=== PATIENT | female | born 1965 | race Caucasian/White ===

== ENCOUNTER → 2016-11-01 | Outpatient (CLI) | payer OTHER ==
--- NOTE | 2016-11-01 11:48 | DI ---
AP PELVIS and RIGHT HIP, 11/01/2016 10:50 AM: Clinical History: Right hip pain. Previous Exam: None at this facility. There is no soft tissue abnormality. The bony structures of the pelvis are normal. 2 views of the rig ht hip are normal. Readin. Normal right hip exam. 2. The AP pelvis view is unremarkable.
--- NOTE | 2016-11-01 11:53 | DI ---
RIGHT KNEE, 11/01/2016 10:37 AM: Clinical History: Acute right knee pain. Previous Exam: 09/19/2013; 10/18/2014. 3 views are submitted. The patient is status post total right knee replacement and the patient has un dergone revision of the entire prosthesis. The prosthetic device articulates normally. However, lucen cy surrounding the metallic shank of the femoral component and this is new since the previous study o f 10/18/2014. The tibial component including the metallic shank appears intact. The prosthetic device a rticulates normally. Readin. Status post revision of the total knee prosthesis. The prosthetic device articulates normally. 2. Since the exam of 10/18/2014, a lucency is developed around the perimeter of the shank of the femor al component and this is suspicious for loosening of the prosthesis. If further evaluation is require d, then consider a three-phase bone scan of the knees.
== END ==
LOC: ORTHO 11:29
PROVIDERS: ATTEND Orthopaedic Surgery
DX: M25.561 Pain in right knee (principal); M25.551 Pain in right hip; Z96.651 Presence of right artificial knee joint
CPT/HCPCS: 73502; 73562

== ENCOUNTER 2016-11-28 21:28 | Emergency (ER) | payer OTHER ==
[2016-11-28] MEDS ORDERED: Sodium Chloride 0.9% 1,000 ML PRIMARY IV ONE (21:34)
[2016-11-28] MEDS ORDERED: ASPIRIN 81 MG (BABY) CHEWABLE TABLET PO ONE (21:34)
[2016-11-28] MEDS ORDERED: NORMAL SALINE 10 ML SYRINGE FLUSH IVP PRN (21:34)
[2016-11-28] MEDS ORDERED: LORazepam 2 MG/1 ML VIAL IVP ONE ×2 (21:35→22:54)
--- NOTE | 2016-11-28 21:39 | EKG ---
[address] [place] [address] Measurements Intervals [place] Rate: 85 P: 78 NV: 153 QRS: 67 QRSD: 87 T: 68 QT: 371 QTc: 413 Interpretive Statements SINUS RHYTHM WITH SINUS ARRHYTHMIA POSSIBLE RIGHT VENTRICULAR CONDUCTION DELAY [RSR (QR) IN V1/V2] NONSPECIFIC T-WAVE ABNORMALITY with baseline interference in limb leads INTERPRETATION BASED ON A DEFAULT AGE OF 40 YEARS Compared to ECG 08/25/2016 16:40:00 T-wave abnormality now present Electronically Signed On 11-29-16 08:13:17 [facility] by Feliciano Vences MD [email or web address]
[2016-11-28 21:41] LABS: BASOPHILS # (AUTO) 0.03 10*3/UL; BASOPHILS % (AUTO) 0.5 % (0-1); EOSINOPHILS % (AUTO) 2.5 % (0-8); HEMATOCRIT 31.6 % (37.0-47.0); HEMOGLOBIN 10.1 g/dL (12.0-16.0); IMM GRAN % (AUTO) 0.2 % (0-5); IMM GRAN# (AUTO) 0.01 10*3/UL; LYMPHOCYTES % (AUTO) 44.2 % (10-50); MEAN CORPUSCULAR HEMOGLOBIN 23.8 PG (27-31); MEAN PLATELET VOLUME 9.8 FL (7.4-12.2); MONOCYTES # (AUTO) 0.68 10*3/UL (0.3-0.8); MONOCYTES % (AUTO) 11.1 % (5-15); NEUTROPHILS # (AUTO) 2.54 10*3/UL; NEUTROPHILS % (AUTO) 41.5 % (50-80); RDW COEFFICIENT OF VARIATION 16.5 % (11.5-14.5); RED BLOOD COUNT 4.25 10^6/uL (4.20-5.40); WHITE BLOOD COUNT 6.11 10^3/uL (4.8-10.8)
[2016-11-28 21:42] LABS: PLATELET MORPHOLOGY COMMENT NORMAL MORPHOLOGY (NORM)
[2016-11-28 21:51] LABS: AMYLASE 98 U/L (30-110); ASPARTATE AMINO TRANSFERASE 32 IU/L (8-39); BILIRUBIN,TOTAL 0.8 mg/dL (0.3-1.2); BLOOD UREA NITROGEN 14 mg/dL (7-22); BUN/CREATININE RATIO 23.33 (6-20); CALCIUM 9.3 mg/dL (8.7-10.7); CHLORIDE 108 meq/L (98-112); CREATININE 0.6 mg/dL (0.50-1.20); EST GLOMERULAR FILTRATION > 60 (>60 ml/min/1.73m(2)); GLUCOSE 89 mg/dL (78-110); POTASSIUM 3.3 meq/L (3.8-5.2); SODIUM 146 meq/L (135-145); TOTAL PROTEIN 7.9 g/dL (6.1-8.0)
[2016-11-28 22:03] LABS: CREATINE KINASE MB 0.53 NG/DL (0.00-5.00); TROPONIN I < 0.012 ng/mL (< 0.040)
[2016-11-28 22:33] VITALS: RESP 20; TEMP 97.7
--- NOTE | 2016-11-28 23:09 | DI ---
HISTORY: Chest pain and elevated d-dimer, request to rule out PE. TECHNIQUE: IV contrast administration of volume of iodine-based contrast medium (isovue 300 64ml). C TA chest to opacify pulmonary arteries. MPR. Additional MIP images obtained. 561 images reviewed. FINDINGS: Tubes/Lines: None. Lungs: Lungs are without focal consolidation, pleural effusion or pneumothorax. Bibasilar atelectasis noted. Incidental azygous lobe. Pulmonary emboli: No evidence of acute or chronic pulmonary emboli. The distal sub segmental branches are incompletely evaluated. Heart: No cardiomegaly or pericardial effusion. Vessels:Thoracic aorta and coronary arteries without gross abnormality. Mediastinum: No mediastinal adenopathy by size criteria. Abdomen: Limited evaluation of the upper abdominal viscera without acute abnormality identified. Gal lbladder surgically absent. Surgical changes of the stomach/proximal small bowel noted. Sternum, ribs and thoracic spine: Healing, left lateral 6th, 7th, 8th and 9th rib fractures. Multilev el thoracic spine degenerative changes. IMPRESSION: 1. No CT evidence of acute or chronic pulmonary embolism. 2. Healing, left lateral 6th, 7th, 8th and 9th rib fractures, no pneumothorax. NOTIFICATION: The above findings were phoned to Kassy Carmichael in the ER Department on 11/29/2016 a t 1:12am EST.
[2016-11-28] MEDS ORDERED: ClonazePAM Tab 1 MG TABLET PO SCH (23:30)
--- NOTE | 2016-11-28 23:49 | PDOC ---
Chest Pain HPI - General Chief Complaint: Chest Pain Stated Complaint: CHEST PAIN Date Seen by Provider: 11/28/16 Time Seen by Provider: 21:30 Source: Patient Exam Limitations: POSITIVE: No limitations Treatment Prior to Arrival: REPORTS: None - History of Present Illness Initial Comments: The patient is a 51-year-old female who presents to the emergency department with complaints of chest pain. She states that she has had significant and severe stress and anxiety related to her 27-year-old daughter who by her account is on meth and has been giving her problems for many years. She states that the stresses become severe. She is worried that her daughter is going to from her drug abuse and she worries about her grandchildren constantly. She is afraid to go to sleep because she is afraid of eating called that her daughter has been killed or arrested. She states that she has not slept for the past 2 nights because of this. She reports that she has been having chest pains off and on associated with her anxiety. She states that she has had constant chest pain since of last week. She denies any increase shortness of breath, palpitations or any other associated symptoms. - Patient Home Medications Home Medications: Home Medications Divalproex Sodium [Depakote] 500 mg PO BID tab 10/06/15 Estradiol 1 tab PO DAILY #30 tab 08/11/16 clonazePAM [KlonoPIN] 1 mg PO Q8H PRN #15 tab 11/28/16 - Patient Allergies Allergies/Adverse Reactions: Allergies Allergy/AdvReac Type Severity Reaction Status Date / Time nickel Allergy Severe DELAYED Verified 11/28/16 21:41 HEALING TKA codeine [Codeine] Allergy Intermediate ITCHING Verified 11/28/16 21:41 Penicillins Allergy Intermediate ANAPHLAXIS Verified 11/28/16 21:41 Sulfa (Sulfonamide Allergy Intermediate RASH Verified 11/28/16 21:41 Antibiotics) tramadol AdvReac Intermediate NAUSEA Verified 11/28/16 21:41 hydrocodone AdvReac VOMITING Verified 11/28/16 21:41 SEAFOOD Allergy Anaphylaxis Uncoded 11/28/16 21:41 Past Medical History - heen HEENT History: Dentures/Partials, Other (please comment) Additional HEENT History: HAS TONGUE piercing. DENTURES UPPER AND LOWER Cardiovascular History: Denies History Respiratory History: Denies History Additional Respiratory History: BRUISED RIBS FROM RECENT ER VISIT APPROX 2-3 WEEKS AGO Gastrointestinal History: GERD, Irritable Bowel Syndrome, Peptic Ulcer Disease, Gallbladder Disease Additional Gastrointestinal History: HX OF GASTRIC BYPASS Genitourinary History: Denies History Additional Genitourinary History: HAS NOT HAD UTI IN A LONG TIME Endocrine History: Other (please comment) Additional Endocrine History: STATES SHE WAS DIABETIC PRIOR TO GASTRIC BYPASS Musculoskeletal History: Arthritis, Back Pain, Joint Pain, Other (please comment ) Prosthesis or Implant: Yes (RIGHT KNEE/LEFT 3RD FINGER) Additional Musculoskeletal History: R TKA SEP 2013 (3 surgeries total), and has had manipulation of right knee under anesthesia since. CHRONIC BACK PAIN Neurological History: Seizures, Migraines, Motion Sickness Additional Neurological History: INSOMNIA Blood Disorders: Anemia Additional Blood Disorders History: LABS ABNORMAL. SEE NOTE IN ANESTHESIA CHART REVIEW FOR FURTHER NOTE. ANEMIA Psychiatric History: Depression, Anxiety Disorders, Substance Abuse Additional Psychiatric History: past history of substance abuse History of Sexually Transmitted Diseases: No Female Reproductive History: Hysterectomy Obstetrical History: Denies History Cancer History: Denies History In Past Year Been Physically Harmed or Verbally Threatened: No History of MDRO: No History of Other Communicable Diseases: No Tobacco Use: Former Smoker Alcohol Use: None Substance Use Type: Other (please comment) Previous Surgical History: Yes Type / Date of Surgery: RIGHT TKA X3 AND MANIPULATION/APPY/ DOMINGUEZ/ GASTRIC BYPASS 2007--weight dropped from 250 lbs to 125 after surgery/ HYST/ BLADDER REPAIR X3/ RIGHT INGUINAL HERNIORRHAPHY/ RIGHT FOOT BUNIONECTOMY/SALPINGO- OOPHERECTOMY/ RIGHT RCR/CTR Anesthesia Reactions: No Malignant Hyperthermia: No Significant Family History: Heart disease, Cancer, Diabetes, Hypertension Additional Family History: FATHER HAD PROSTATE CA/CVA Past Medical History Reviewed: Reviewed - No Changes ROS - Limitations ROS Limitations: No Limitations Constitution: DENIES: Chills, Fever Cardiovascular: REPORTS: Chest Pain. DENIES: Heart Racing, Heart Palpitations, Edema Respiratory: DENIES: Cough Non Productive, Cough Productive, Shortness Of Breath Neurological: REPORTS: Headache. DENIES: Numbness, Weakness Gastrointestinal: DENIES: Abdominal Pain Musculoskeletal: DENIES: Calf Pain, Lower Extremity Swelling Genitourinary: REPORTS: Denies Symptoms Eyes: REPORTS: Denies Symptoms ENT: REPORTS: Denies Symptoms Skin: DENIES: Rash Chest Pain PE - General Appearance General Appearance: REPORTS: Alert, Anxious - HEENT HEENT: POSITIVE: Head Inspection Nml, Eyes Inspection Nml, Ears Inspection Nml, Nose Inspection Nml, Pharynx Inspect. Nml - Neck Neck: REPORTS: Normal Inspection. DENIES: Lymphadenopathy - Respiratory Respiratory: REPORTS: No Respiratory Distress, Breath Sounds Normal - Cardiovascular Cardiovascular: REPORTS: Regular Rate and Rhythm, Heart Sounds Normal Peripheral Pulses: Dorsalis-pedis (R): 2+, Dorsalis-pedis (L): 2+ - Abdomen Abdomen: Soft: (All Quadrants), Denies Tenderness: (All Quadrants), No Distention: (All Quadrants) - Skin Skin: REPORTS: Intact, No Rash - Extremities Extremity: Normal ROM: (All Extremities), Normal Inspection: (All Extremities) - Neurological / Psychological Neurological: POSITIVE: Oriented X3, Motor Normal, Sensation Normal Chest Pain Progress - Results Reviewed by me Xrays/CTs/US Reviewed by me: Yes Discussed with Radiologist: Yes Radiology Findings: CT scan of the chest for PE protocol reveals no evidence of PE, no other acute findings per radiologist. Chest x-ray done prior to that was also unremarkable. Lab Results Reviewed: Yes Lab Results:: Laboratory Results 11/28/16 Range/Units 21:36 WBC 6.11 (4.8-10.8) 10^3/uL RBC 4.25 (4.20-5.40) 10^6/uL Hgb 10.1 L (12.0-16.0) g/dL Hct 31.6 L (37.0-47.0) % MCV 74.4 L (81-99) FL MCH 23.8 L (27-31) PG MCHC 32.0 L (33-37) g/dL RDW Std Deviation 43.7 (39-50) fL RDW Coeff of Sam 16.5 H (11.5-14.5) % Plt Count 342 (140-350) 10*3/uL MPV 9.8 (7.4-12.2) FL Immature Gran % (Auto) 0.2 (0-5) % Neut % (Auto) 41.5 L (50-80) % Lymph % (Auto) 44.2 (10-50) % [place] % (Auto) 11.1 (5-15) % Eos % (Auto) 2.5 (0-8) % Baso % (Auto) 0.5 (0-1) % Immature Gran # (Auto) 0.01 10*3/UL Neut # (Auto) 2.54 10*3/UL Lymph # (Auto) 2.70 10*3/uL [place] # (Auto) 0.68 (0.3-0.8) 10*3/UL Eos # (Auto) 0.15 10*3/UL Baso # (Auto) 0.03 10*3/UL WBC Morphology Comment Normal morphology (NORM) Plt Morphology Comment Normal morphology (NORM) RBC Morph Comment Normal morphology (NORM) D-Dimer 1.38 H (0.00-0.59) mg/L Sodium 146 H (135-145) meq/L Potassium 3.3 L (3.8-5.2) meq/L Chloride 108 (98-112) meq/L Carbon Dioxide 22 L (23-33) meq/L Anion Gap 16 (5-20) BUN 14 (7-22) mg/dL Creatinine 0.6 (0.50-1.20) mg/dL Estimated GFR > 60 (>60 ml/min/1.73m(2)) BUN/Creatinine Ratio 23.33 H (6-20) Glucose 89 (78-110) mg/dL Calculated Osmolality 301.0 H (267-292) mOsm/kg Calcium 9.3 (8.7-10.7) mg/dL Magnesium 2.0 (1.6-2.4) mg/dL Total Bilirubin 0.8 (0.3-1.2) mg/dL AST 32 (8-39) IU/L ALT 30 (9-52) IU/L Alkaline Phosphatase 121 (38-126) IU/L CK-MB (CK-2) 0.53 (0.00-5.00) NG/DL Troponin I < 0.012 (< 0.040) ng/mL Total Protein 7.9 (6.1-8.0) g/dL Albumin 4.4 (3.5-4.8) g/dL Globulin 3.5 (2.50-4.10) g/dL Albumin/Globulin Ratio 1.20 L (1.3-2.0) mg/g Amylase 98 (30-110) U/L Lipase 296 (23-300) IU/L TSH 2.29 (0.2700-4.2000) uIU/mL EKG Interpreted/Reviewed By Me:: Yes EKG Interpretation:: POSITIVE: Normal Sinus Rhythm, Normal Rate, Normal Intervals, Normal [place], Normal QRS, Normal ST/T - Patient's Progress MDM / ED Course: The patient was tearful and quite anxious on arrival. Her initial EKG showed a normal sinus rhythm without acute changes. It was thought that her pain was most likely secondary to anxiety and stress. She did receive 1 dose of Ativan however remained quite anxious and tearful and received a second dose. She was feeling better at that time. Her initial blood work revealed a normal troponin. Given the duration of her pain I think this makes any acute coronary issue much less likely. Her d-dimer was elevated and a subsequent CT PE protocol was negative for PE. Her pain was most likely attributed to anxiety and stress. She was encouraged to follow-up with a counselor. She states that she does not trust any of the counselors here however her primary care provider was going to refer her to [facility]. She was prescribed Klonopin 1 mg every 8 hours as needed for severe anxiety or stress. She is advised return to the emergency room if any worsening or change in symptoms. - Consult Counseled: POSITIVE: Patient, Family, RE: Lab Results, RE: Radiology Results, RE : DX, RE: Need for F/U Patient Care Time - Estimated PCT Patient Care Time (In Minutes): 45 Vital Signs - Recent Vital Signs Vital Signs: Vital Signs (Last 8 hours) Temp Pulse Pulse Resp BP Pulse Ox 11/28/16 21:30 97.7 F 88 20 99/73 98 11/28/16 21:29 87 - VS Reviewed Vital Signs Reviewed: Yes Discharge Clinical Impression: Chest pain, Anxiety Condition: Stable Prescriptions / Orders: clonazePAM [KlonoPIN] 1 mg PO Q8H PRN #15 tab PRN Reason: Anxiety Patient Instructions Given at Discharge: Chest Pain (ED), Anxiety (ED) Additional Instructions: The EKG and blood test did not reveal any evidence of heart attack. The CAT scan did not show any evidence of blood clot. Your other blood work was all essentially unremarkable except for mild anemia. Your chest pains and other symptoms are most likely related to the increased stress you're experiencing. You have been prescribed Klonopin 1 mg every 8 hours as needed for anxiety/ panic. You will need to follow-up with your primary care provider as soon as possible to discuss further treatment recommendations. I also agree that counseling would be a good idea for you as well. Return to the emergency room if any worsening or change in symptoms. Follow Up With: VENKAT MOTT [Primary Care Provider] -
--- NOTE | 2016-11-29 09:13 | DI ---
AP CHEST X-RAY, 11/28/2016 9:34 PM : Clinical History: Chest pain Previous Exam: September 16, 2016 There is no acute soft tissue or bony abnormality. Heart size is normal. Lungs are clear. Mediastinal structures are normal. There are no pulmonary nodules. Reading: Normal chest x-ray.
== END 2016-11-28 23:46 | disposition home or self-care (01) ==
LOC: ER 21:28
DX: R07.9 Chest pain, unspecified (principal); F41.9 Anxiety disorder, unspecified
CPT/HCPCS: 71010; 71275; 80053; 82150; 82553; 83690; 83735; 84443; 84484; 85025; 85379; 93005; 93010; 96374; 96376; 99284; J2060; J7030

== ENCOUNTER 2016-12-13 02:36 | Observation (INO) | payer OTHER ==
[2016-12-13] MEDS ORDERED: NITROGLYCERIN 0.4 MG SL TAB (BOTTLE OF 3) SL ONE (02:54)
[2016-12-13] MEDS ORDERED: LORazepam 2 MG/1 ML VIAL IVP ONE (02:54)
[2016-12-13] MEDS ORDERED: ASPIRIN 81 MG (BABY) CHEWABLE TABLET PO ONE (02:54)
[2016-12-13] MEDS ORDERED: ONDANSETRON 4 MG/2 ML VIAL IVP ONE (02:54)
[2016-12-13] MEDS ORDERED: MORPHINE SULFATE 4 MG/1 ML IVP ONE (02:54)
[2016-12-13] MEDS ORDERED: Sodium Chloride 0.9% 1,000 ML PRIMARY IV SCH (03:00)
--- NOTE | 2016-12-13 03:01 | EKG ---
[address] [place] [address] Measurements Intervals [place] Rate: 78 P: 82 [place]: 149 QRS: 67 QRSD: 88 T: 21 QT: 389 QTc: 423 Interpretive Statements SINUS RHYTHM NONSPECIFIC T-WAVE ABNORMALITY Compared to ECG 11/28/2016 21:33:28 Sinus arrhythmia no longer present T-wave abnormality still present Electronically Signed On 12-13-16 10:23:45 [facility] by Jacob Sanchez [email or web address]
--- NOTE | 2016-12-13 03:02 | PDOC ---
Chest Pain HPI - General Chief Complaint: Chest Pain Stated Complaint: CHEST PAIN Date Seen by Provider: 12/13/16 Time Seen by Provider: 02:57 Source: Patient Exam Limitations: POSITIVE: No limitations Treatment Prior to Arrival: REPORTS: None Nurse's Notes Reviewed & Considered: Yes - History of Present Illness Initial Comments: Patient comes in today with chest pain. Patient with sharp left-sided chest pain that radiates into her shoulder and back with associated shortness of breath. She's had recent fever 102, nausea, vomiting, decreased urine output without hematuria or dysuria, swelling of her hands and feet, and increased anxiety. She is tearful, tremulous, alert and oriented to person place and time. She has been unable sleep for 6 days since she took Seroquel. She was told to discontinue Seroquel at that time. The swelling of her hands and feet began at that time. Chest pain began yesterday. Body Location Affected: REPORTS: Chest Timing: REPORTS: Constant, Getting Worse Duration: <1 week Severity: Severe Context: REPORTS: Emotional Upset Quality: REPORTS: "Pain", Sharpness Radiation: REPORTS: Jaw (L), Shoulder (L), Arm (L), Back Associated Symptoms: REPORTS: Nausea, Vomiting, Diaphoresis, Shortness of Breath , Hurts to Breathe Modifying Factors: improves with: None Reported Recently seen/treated/hospitalized: No Any Prior Injuries Related to Current Complaint?: No - Patient Home Medications Home Medications: Home Medications Divalproex Sodium [Depakote] 500 mg PO BID tab 10/06/15 Estradiol 1 tab PO DAILY #30 tab 08/11/16 clonazePAM [KlonoPIN] 1 mg PO Q8H PRN #15 tab 11/28/16 - Patient Allergies Allergies/Adverse Reactions: Allergies Allergy/AdvReac Type Severity Reaction Status Date / Time nickel Allergy Severe DELAYED Verified 12/13/16 03:43 HEALING TKA codeine [Codeine] Allergy Intermediate ITCHING Verified 12/13/16 03:43 Penicillins Allergy Intermediate ANAPHLAXIS Verified 12/13/16 03:43 Sulfa (Sulfonamide Allergy Intermediate RASH Verified 12/13/16 03:43 Antibiotics) tramadol AdvReac Intermediate NAUSEA Verified 12/13/16 03:43 hydrocodone AdvReac VOMITING Verified 12/13/16 03:43 SEAFOOD Allergy Anaphylaxis Uncoded 12/13/16 03:43 Past Medical History - heen HEENT History: Dentures/Partials, Other (please comment) Additional HEENT History: HAS TONGUE piercing. DENTURES UPPER AND LOWER Cardiovascular History: Denies History Respiratory History: Denies History Additional Respiratory History: BRUISED RIBS FROM RECENT ER VISIT APPROX 2-3 WEEKS AGO Gastrointestinal History: GERD, Irritable Bowel Syndrome, Peptic Ulcer Disease, Gallbladder Disease Additional Gastrointestinal History: HX OF GASTRIC BYPASS Genitourinary History: Denies History Additional Genitourinary History: HAS NOT HAD UTI IN A LONG TIME Endocrine History: Other (please comment) Additional Endocrine History: STATES SHE WAS DIABETIC PRIOR TO GASTRIC BYPASS Musculoskeletal History: Arthritis, Back Pain, Joint Pain, Other (please comment ) Prosthesis or Implant: Yes (RIGHT KNEE/LEFT 3RD FINGER) Additional Musculoskeletal History: R TKA SEP 2013 (3 surgeries total), and has had manipulation of right knee under anesthesia since. CHRONIC BACK PAIN Neurological History: Seizures, Migraines, Motion Sickness Additional Neurological History: INSOMNIA Blood Disorders: Anemia Additional Blood Disorders History: LABS ABNORMAL. SEE NOTE IN ANESTHESIA CHART REVIEW FOR FURTHER NOTE. ANEMIA Psychiatric History: Depression, Anxiety Disorders, Substance Abuse Additional Psychiatric History: past history of substance abuse History of Sexually Transmitted Diseases: No Female Reproductive History: Denies History Obstetrical History: Denies History Cancer History: Denies History In Past Year Been Physically Harmed or Verbally Threatened: No History of MDRO: No History of Other Communicable Diseases: No Tobacco Use: Never Smoker Alcohol Use: None Substance Use Type: Other (please comment) Previous Surgical History: Yes Type / Date of Surgery: RIGHT TKA X3 AND MANIPULATION/APPY/ DOMINGUEZ/ GASTRIC BYPASS 2007--weight dropped from 250 lbs to 125 after surgery/ HYST/ BLADDER REPAIR X3/ RIGHT INGUINAL HERNIORRHAPHY/ RIGHT FOOT BUNIONECTOMY/SALPINGO- OOPHERECTOMY/ RIGHT RCR/CTR Anesthesia Reactions: No Malignant Hyperthermia: No Significant Family History: Heart disease, Cancer, Diabetes, Hypertension Additional Family History: FATHER HAD PROSTATE CA/CVA ROS - Limitations ROS Limitations: No Limitations Constitution: REPORTS: Chills, Fever Cardiovascular: REPORTS: Chest Pain Respiratory: REPORTS: Hurts To Breathe, Shortness Of Breath Neurological: REPORTS: Denies Neuro Symptoms Gastrointestinal: REPORTS: Abdominal Pain, Nausea, Vomitting Endocrine: REPORTS: Denies Symptoms Musculoskeletal: REPORTS: Back Pain, Lower Extremity Swelling Genitourinary: REPORTS: Other (Decreased urine output with increased frequency.) Eyes: REPORTS: Denies Symptoms ENT: REPORTS: Denies Symptoms Skin: REPORTS: Denies Skin Symptoms Lympathic: REPORTS: Denies Lympathic Symptoms Immunologic: POSITIVE: Denies Symptoms Psychiatric: POSITIVE: Anxiety Chest Pain PE - General Appearance General Appearance: REPORTS: Alert, No Evidence of Trauma, Moderate Distress - HEENT HEENT: POSITIVE: Head Inspection Nml, Eyes Inspection Nml, Ears Inspection Nml, Nose Inspection Nml, Oral/Dental Inspect. Nml, Pharynx Inspect. Nml, PERRL, EOMI - Neck Neck: REPORTS: Normal Inspection, Other (No thyromegaly) - Respiratory Respiratory: REPORTS: Breath Sounds Normal, Chest Non-Tender - Cardiovascular Cardiovascular: REPORTS: Regular Rate and Rhythm, Heart Sounds Normal, Equal Pulses, Strong Pulses, No Murmur, No Gallop, No Friction Rub, No JVD Peripheral Pulses: Radial (R): 3+, Radial (L): 3+ - Abdomen Abdomen: Soft: (All Quadrants), Normal Bowel Sounds: (All Quadrants), Denies Tenderness: (All Quadrants) - Skin Skin: REPORTS: Intact, Normal For Race, Warm, Dry, No Rash - Extremities Extremity: Non-Tender: (All Extremities), Normal ROM: (All Extremities), Normal Inspection: (All Extremities), Edema / Swelling: (All Extremities) - Neurological / Psychological Neurological: POSITIVE: Oriented X3, Other (tearful and very anxious) Chest Pain Progress - Results Reviewed by me Xrays/CTs/US Reviewed by me: Yes Discussed with Radiologist: Yes Lab Results Reviewed: Yes Lab Results:: Laboratory Results 12/13/16 12/13/16 Range/Units 02:48 03:12 WBC 9.90 (4.8-10.8) 10^3/uL RBC 3.46 L (4.20-5.40) 10^6/uL Hgb 7.9 L (12.0-16.0) g/dL Hct 25.8 L (37.0-47.0) % MCV 74.6 L (81-99) FL MCH 22.8 L (27-31) PG MCHC 30.6 L (33-37) g/dL RDW Std Deviation 44.6 (39-50) fL RDW Coeff of Sam 17.1 H (11.5-14.5) % Plt Count 356 H (140-350) 10*3/uL MPV 10.2 (7.4-12.2) FL Immature Gran % (Auto) 0.1 (0-5) % Neut % (Auto) 64.5 (50-80) % Lymph % (Auto) 18.2 (10-50) % [place] % (Auto) 16.8 H (5-15) % Eos % (Auto) 0.3 (0-8) % Baso % (Auto) 0.1 (0-1) % Immature Gran # (Auto) 0.01 10*3/UL Neut # (Auto) 6.39 10*3/UL Lymph # (Auto) 1.80 10*3/uL [place] # (Auto) 1.66 H (0.3-0.8) 10*3/UL Eos # (Auto) 0.03 10*3/UL Baso # (Auto) 0.01 10*3/UL WBC Morphology Comment Normal morphology (NORM) Plt Morphology Comment Normal morphology (NORM) RBC Morph Comment See comments (NORM) D-Dimer 1.39 H (0.00-0.59) mg/L Sodium 136 (135-145) meq/L Potassium 3.5 L (3.8-5.2) meq/L Chloride 100 (98-112) meq/L Carbon Dioxide 26 (23-33) meq/L Anion Gap 10 (5-20) BUN 20 (7-22) mg/dL Creatinine 0.6 (0.50-1.20) mg/dL Estimated GFR > 60 (>60 ml/min/1.73m(2)) BUN/Creatinine Ratio 33.33 H (6-20) Glucose 103 (78-110) mg/dL Calculated Osmolality 284.0 (267-292) mOsm/kg Lactic Acid 0.8 (0.70-2.10) MMOL/L Calcium 8.5 L (8.7-10.7) mg/dL Magnesium 1.9 (1.6-2.4) mg/dL Total Bilirubin 0.7 (0.3-1.2) mg/dL AST 54 H (8-39) IU/L ALT 26 (9-52) IU/L Alkaline Phosphatase 130 H (38-126) IU/L Troponin I < 0.012 (< 0.040) ng/mL NT-Pro-B Natriuret Pep 556 H (0-125) PG/ML Total Protein 7.1 (6.1-8.0) g/dL Albumin 3.6 (3.5-4.8) g/dL Globulin 3.5 (2.50-4.10) g/dL Albumin/Globulin Ratio 1.00 L (1.3-2.0) mg/g TSH 0.359 (0.2700-4.2000) uIU/mL Free T4 1.57 (0.93-1.71) ng/dL EKG Interpretation:: POSITIVE: Normal Sinus Rhythm, Abnormal EKG (Nonspecific ST changes) - Patient's Progress Pain Medication Addressed: POSITIVE: Yes Re-Examine Time: 04:07 Re-Examine Time:: 05:43 Status: POSITIVE: Improved MDM / ED Course: Patient was evaluated, IV started, blood drawn and sent to lab for studies, radiographic buddies were obtained, EKG was obtained. Findings: EKG per my interpretation shows sinus rhythm with nonspecific T-wave changes. Chest x-ray shows no acute cardiopulmonary decompensation. Digital rectal exam is negative for blood on guaiac staining. CBC shows anemia with hemoglobin 7.9 and hematocrit of 25.8. D-dimer is elevated. Troponin negative , TSH and T4 normal. CTA of the chest shows no acute PE present. CT of the abdomen and no acute intra-abdominal abnormalities. BNP is elevated over 500. Assessment: #1 is pain with normal enzymes and equivocal EKG. #2 symptomatic anemia. Plan: Admission, probable transfusion. ER course: She received a liter of normal saline, a milligram of Ativan, sublingual nitroglycerin and Zofran. These medications dropped her pressure into the 90s, and she was bolused with normal saline. She continued to be short of breath, complaining of pain radiating into her left shoulder. The pain was improved. She also continues to have fatigue. Quality Measure Initiative: CP/AMI: POSITIVE: EKG, ASA Quality Measure Initiative: CAP: POSITIVE: CXR or CT - Consult Consult (If Yes, Name of Consulting MD & Time Called): Yes (Dr. Santos [id number]) Consulting MD will see pt:: [place]IVE[place] [facility] [place] Counseled: POSITIVE: Patient, Family, RE: Lab Results, RE: Radiology Results, RE : DX Patient Care Time - Estimated PCT Patient Care Time (In Minutes): 45 Vital Signs - Recent Vital Signs Vital Signs: Vital Signs (Last 8 hours) Temp Pulse Pulse Resp BP Pulse Ox 12/13/16 05:37 98.2 F 18 99 12/13/16 04:50 90 12/13/16 02:54 90 12/13/16 02:49 98.2 F 87 22 111/76 99 - VS Reviewed Vital Signs Reviewed: Yes Discharge Clinical Impression: Chest pain, Symptomatic anemia Discharge Disposition: Admit to Inpatient Condition: Stable Patient Instructions Given at Discharge: Chest Pain (ED), Anemia (ED) Date Decision to Admit to Inpatient: 12/13/16 Time Decision to Admit to Inpatient: 05:51
[2016-12-13 03:04] LABS: BASOPHILS # (AUTO) 0.01 10*3/UL; BASOPHILS % (AUTO) 0.1 % (0-1); EOSINOPHILS % (AUTO) 0.3 % (0-8); HEMATOCRIT 25.8 % (37.0-47.0); HEMOGLOBIN 7.9 g/dL (12.0-16.0); IMM GRAN % (AUTO) 0.1 % (0-5); IMM GRAN# (AUTO) 0.01 10*3/UL; LYMPHOCYTES % (AUTO) 18.2 % (10-50); MEAN CORPUSCULAR HEMOGLOBIN 22.8 PG (27-31); MEAN CORPUSCULAR HGB CONC 30.6 g/dL (33-37); MEAN PLATELET VOLUME 10.2 FL (7.4-12.2); MONOCYTES # (AUTO) 1.66 10*3/UL (0.3-0.8); MONOCYTES % (AUTO) 16.8 % (5-15); NEUTROPHILS # (AUTO) 6.39 10*3/UL; NEUTROPHILS % (AUTO) 64.5 % (50-80); RDW COEFFICIENT OF VARIATION 17.1 % (11.5-14.5); RED BLOOD COUNT 3.46 10^6/uL (4.20-5.40)
[2016-12-13 03:10] LABS: ASPARTATE AMINO TRANSFERASE 54 IU/L (8-39); BILIRUBIN,TOTAL 0.7 mg/dL (0.3-1.2); BLOOD UREA NITROGEN 20 mg/dL (7-22); BUN/CREATININE RATIO 33.33 (6-20); CALCIUM 8.5 mg/dL (8.7-10.7); CHLORIDE 100 meq/L (98-112); CREATININE 0.6 mg/dL (0.50-1.20); EST GLOMERULAR FILTRATION > 60 (>60 ml/min/1.73m(2)); GLUCOSE 103 mg/dL (78-110); MAGNESIUM 1.9 mg/dL (1.6-2.4); POTASSIUM 3.5 meq/L (3.8-5.2); SODIUM 136 meq/L (135-145); TOTAL PROTEIN 7.1 g/dL (6.1-8.0)
[2016-12-13 03:28] LABS: FREE T4 (FREE THYROXINE) 1.57 ng/dL (0.93-1.71)
[2016-12-13 03:35] LABS: PLATELET MORPHOLOGY COMMENT NORMAL MORPHOLOGY (NORM)
--- NOTE | 2016-12-13 05:28 | DI ---
HISTORY: Shortness of breath with elevated d-dimer. COMPARISON: 07/28/2016. TECHNIQUE: Contiguous axial images of the chest were obtained from the lung apices through the adren al glands. FINDINGS: No pneumothorax, pleural effusion, or area of consolidation. Incidental note is made of an azygos lobe. No evidence of great vessel injury. 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 No main or segmental pulmonary emboli. Heart size is normal with no p ericardial effusion. No mediastinal or hilar lymphadenopathy. Normal CT appearance of the liver, pa ncreas, spleen, kidneys, and adrenal glands. The patient is status post cholecystectomy. Ureters ar e unremarkable. The patient is status post gastric bypass surgery. Hollow viscus organs demonstrate expected course and caliber. There is no intraperitoneal free air or fluid. Vascular structures are intact with scattered atheromatous calcifications. No abdominal lymphadenopathy is present. Subacute left anterolateral sixth through ninth rib fractures are noted. There is multilevel degenerative disc disease. IMPRESSION: 1. Incidental note is made of an azygos lobe. 2. 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 3. No main or segmental pulmonary emboli. 4. Status post cholecystectomy. 5. The patient is status post gastric bypass surgery. 6. Vascular structures are intact with scattered atheromatous calcifications. 7. Subacute left anterolateral sixth through ninth rib fractures are noted. 8. There is multilevel degenerative disc disease. NOTIFICATION: The above findings were phoned to Fernando Ratliff in the ER Department on 12/13/2016 at 07: 32 AM EST.
--- NOTE | 2016-12-13 05:28 | DI ---
HISTORY: GI bleed. COMPARISON: 07/28/2016. TECHNIQUE: Contiguous axial images of the abdomen were obtained and submitted for interpretation. FINDINGS: No pneumothorax, pleural effusion, or area of consolidation. Incidental note is made of a n azygos lobe. No evidence of great vessel injury. 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 No main or segmental pulmonary emboli. Heart size is normal with no pe ricardial effusion. No mediastinal or hilar lymphadenopathy. Normal CT appearance of the liver, pancreas, spleen, kidneys, and adrenal glands. The patient is sta tus post cholecystectomy. Ureters are unremarkable. The patient is status post gastric bypass surge ry. Hollow viscus organs demonstrate expected course and caliber. There is no intraperitoneal free air or fluid. Vascular structures are intact with scattered atheromatous calcifications. No abdominal lymphadenopathy is present. Subacute left anterolateral sixth through ninth rib fractures are noted. There is multilevel degenerative disc disease. IMPRESSION: 1. Incidental note is made of an azygos lobe. 2. 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 3. No main or segmental pulmonary emboli. 4. Status post cholecystectomy. 5. The patient is status post gastric bypass surgery. 6. Vascular structures are intact with scattered atheromatous calcifications. 7. Subacute left anterolateral sixth through ninth rib fractures are noted. 8. There is multilevel degenerative disc disease. NOTIFICATION: The above findings were phoned to Fernando Ratliff in the ER Department on 12/13/2016 at 07: 32 AM EST.
[2016-12-13] MEDS ORDERED: ONDANSETRON 4 MG/2 ML VIAL IVP PRN (06:22)
[2016-12-13 06:28] LABS: PERCENT IRON SATURATION 3.08 % (14-50)
[2016-12-13] MEDS ORDERED: Influenza 16-17 Vaccine(4yrs+) 45 MCG/0.5 ML SYRINGE IM ONE ×2 (06:49→15:15)
--- NOTE | 2016-12-13 07:40 | PDOC ---
History and Physical - History of Present Illness Date and Time of Service: 12/13/2016 7:37 AM Chief Complaint: Chest pain, left arm pain of 2 days' duration, shortness of breath and dizziness History of Present Illness: This is a 51 years old female with medical history significant for history of seizure disorder, history of previous gastric bypass who came into the hospital because of history of pain felt in the left upper part of the chest and in the left arm being going on for 2 days with some shortness of breath, dizziness. She did report vomiting. The pain was on and off and at times constant lasted hours she said. There was a plan for her to go see her primary today but her brought her to the ER. Apparently she was a tearful and tremulous in the ER she said didn't sleep for 6 days. She did report some swelling in her hands and feet. She was given morphine and Ativan and lab tests revealed anemia and it was lower than her previous level and hence the admission. She is sleepy but pain is less she said than before. She denied melena. She reported lower abdominal pain since she had the gastric bypass surgery. Past Medical History Medical History: 1. History of gastric bypass before. 2. History of seizure disorder since 2008. 3. History of gastric ulcer according to her Surgical History: 1. Gastric bypass in 2007. 2. History of cholecystectomy. 3. History of hysterectomy and salpingo-oophorectomy Pertinent Family History: Her father had cardiac disease, mother had the COPD emphysema Tobacco Use: Never Smoker Substance Use Type: None, Other (please comment) Alcohol Use: None Medication / Allergies Home Medications: Home Medications Medication Instructions Recorded Confirmed Type RX: Divalproex Sodium [Depakote] 500 mg PO BID tab 10/06/15 12/13/16 History RX: Estradiol 1 tab PO DAILY #30 tab 08/11/16 12/13/16 Clinic clonazePAM [KlonoPIN] 1 mg PO Q8H PRN #15 tab 11/28/16 12/13/16 Rx Allergies/Adverse Reactions: Allergies Allergy/AdvReac Type Severity Reaction Status Date / Time nickel Allergy Severe DELAYED Verified 12/13/16 06:43 HEALING TKA codeine [Codeine] Allergy Intermediate ITCHING Verified 12/13/16 06:43 Penicillins Allergy Intermediate ANAPHLAXIS Verified 12/13/16 06:43 Sulfa (Sulfonamide Allergy Intermediate RASH Verified 12/13/16 06:43 Antibiotics) tramadol AdvReac Intermediate NAUSEA Verified 12/13/16 06:43 hydrocodone AdvReac VOMITING Verified 12/13/16 06:43 SEAFOOD Allergy Anaphylaxis Uncoded 12/13/16 06:43 Review of Systems - Review of Systems All Systems: Reviewed & No Additional Complaints Except as Stated Exam - Vitals Vital Signs: Vital Signs Temperature 97.9 F Temperature Source Temporal Artery Scan Pulse Rate [Pulse Oximeter] 91 Respiratory Rate 18 Blood Pressure [Left Arm] 99/62 Pulse Ox 98 Oxygen Flow Rate 2 Oxygen Delivery Method Nasal Cannula Height 5 ft 3 in Weight 117 lb 6.4 oz - General General Appearance: POSITIVE: No Acute Distress, Thin - Head Head Exam: POSITIVE: Normal Inspection, Atraumatic - Eye Eye Exam: POSITIVE: Normal Appearance - ENT Additonal ENT Exam Details: edentulous - Neck Neck Exam: POSITIVE: Normal Inspection - Respiratory Respiratory Exam: POSITIVE: Clear to Auscultation - Bilaterally - Cardiovascular Cardiovascular Exam: POSITIVE: RRR - GI/Abdominal GI/Abdominal Exam: POSITIVE: Normal Bowel Sounds, Non Tender, Non Distended, Soft - Rectal Rectal Exam: POSITIVE: Deferred - External Exam: POSITIVE: Deferred - Extremities Extremities Exam: POSITIVE: Normal Inspection - Back Back Exam: POSITIVE: Normal Inspection - Neurological Neurological Exam: POSITIVE: Alert, CN II-XII Intact, Moves All Extremities Equally Additional Neurological Exam Details: Sleepy at times during the interview - Psychiatric Psychiatric Exam: POSITIVE: Normal Affect - Integumentary Integumentary Exam: POSITIVE: Normal Color Results - Labs CBC and BMP: 12/13/16 02:48 12/13/16 02:48 - EKG Data Rate: Normal EKG Shows Normal: Sinus Rhythm - EKG Data When Compared to Previous EKG(s) There Are: Other (Nonspecific EKG changes noted ) - Imaging Status: Report Reviewed by Me (CT of the abdomen and chest showed subacute left anterolateral sixth through ninth rib fractures on the left, patient is status post cholecystectomy, status post gastric bypass surgery.) Assessment and Plan - Patient Problems (1) Anemia Current Visit: No Status: Acute Comment: This looks the iron deficiency anemia, because of the history of the chest pain and shortness of breath will transfuse her. She likely need to be on iron. I saw her outpatient record of an EGD done in August [address] Valenzuela which report several large deep ulcers were present at the gastrojejunal anastomosis. And also one shallow linear ulcer present at the Y anastomosis. Will Speak with Dr. Melton and see what he thinks about a repeat EGD (2) Chest pain Current Visit: Yes Status: Acute Comment: Maybe secondary to the anemia, EKG showed nonspecific changes, will repeat her enzymes. We'll see her response to the transfusion. (3) Seizure disorder Current Visit: No Status: Acute Comment: Continue Depakote
[2016-12-13] MEDS ORDERED: Sodium Chloride 0.9% 500 ML PRIMARY IV ONE (07:56)
--- NOTE | 2016-12-13 09:19 | DI ---
AP CHEST X-RAY, 12/13/2016 2:54 AM : Clinical History: Chest pain. Previous Exam: 11/28/2016. There is no acute soft tissue or bony abnormality. Heart size is normal. Lungs are clear. Mediastinal structures are normal. There are no pulmonary nodules. Reading: Normal chest x-ray. There has been no change.
[2016-12-13] MEDS: NORMAL SALINE 10 ML SYRINGE FLUSH IVP PRN ×2 (09:54→20:46)
[2016-12-13] MEDS: Pantoprazole Inj 40 MG in Normal Saline Flush 10 ML IVP SCH ×2 (09:54→20:45)
[2016-12-13 10:04] LABS: TROPONIN I < 0.012 ng/mL (< 0.040)
[2016-12-13 10:40] LABS: CREATINE KINASE MB 2.84 NG/DL (0.00-5.00)
[2016-12-13] MEDS: Sucralfate Tab 1 GM TAB PO SCH ×3 (12:07→20:45)
[2016-12-13 13:18] LABS: BILIRUBIN,URINE NEGATIVE (NEG); CLARITY,URINE CLEAR (CLEAR); GLUCOSE, URINE (UA) NEGATIVE (NEG); LEUKOCYTE ESTERASE ,URINE TRACE (NEG); NITRATE,URINE NEGATIVE (NEG); OCCULT BLOOD,URINE NEGATIVE (NEG); PROTEIN,URINE TRACE mg/dl (NEG)
[2016-12-13 13:29] LABS: URINE SAMPLE TYPE CLEAN CATCH URINE
[2016-12-13 13:30] LABS: BACTERIA,URINE FEW; SQUAMOUS EPITHELIAL CELL,UR MODERATE
[2016-12-13] MEDS: oxyCODONE-ACETAMINOPHEN 5-325 TAB PO PRN ×2 (14:46→18:18)
[2016-12-13 16:06] LABS: TROPONIN I < 0.012 ng/mL (< 0.040)
[2016-12-13 16:33] LABS: CARDIAC CK 341 IU/L (30-135); CKMB RATIO 0.55 %; CREATINE KINASE MB 1.88 NG/DL (0.00-5.00)
[2016-12-13] MEDS ORDERED: Metoclopramide Inj 10 MG/2 ML VIAL IVP PRN (20:14)
[2016-12-13] MEDS: POTASSIUM CHLORIDE 20 MEQ TAB PO SCH (20:45)
[2016-12-14] MEDS: oxyCODONE-ACETAMINOPHEN 5-325 TAB PO PRN ×2 (00:25→07:13)
[2016-12-14 05:33] LABS: BASOPHILS # (AUTO) 0.01 10*3/UL; BASOPHILS % (AUTO) 0.2 % (0-1); EOSINOPHILS % (AUTO) 2.1 % (0-8); HEMATOCRIT 29.8 % (37.0-47.0); HEMOGLOBIN 9.6 g/dL (12.0-16.0); IMM GRAN % (AUTO) 0 % (0-5); IMM GRAN# (AUTO) 0 10*3/UL; LYMPHOCYTES # (AUTO) 2.35 10*3/uL; LYMPHOCYTES % (AUTO) 50.2 % (10-50); MEAN CORPUSCULAR HEMOGLOBIN 24.9 PG (27-31); MEAN CORPUSCULAR HGB CONC 32.2 g/dL (33-37); MEAN PLATELET VOLUME 9.9 FL (7.4-12.2); MONOCYTES # (AUTO) 0.75 10*3/UL (0.3-0.8); NEUTROPHILS # (AUTO) 1.47 10*3/UL; NEUTROPHILS % (AUTO) 31.5 % (50-80); RDW COEFFICIENT OF VARIATION 17.6 % (11.5-14.5); RED BLOOD COUNT 3.86 10^6/uL (4.20-5.40); WHITE BLOOD COUNT 4.68 10^3/uL (4.8-10.8)
[2016-12-14 05:42] LABS: BLOOD UREA NITROGEN 7 mg/dL (7-22); CALCIUM 7.9 mg/dL (8.7-10.7); CHLORIDE 106 meq/L (98-112); CREATININE 0.5 mg/dL (0.50-1.20); EST GLOMERULAR FILTRATION > 60 (>60 ml/min/1.73m(2)); GLUCOSE 80 mg/dL (78-110); POTASSIUM 3.4 meq/L (3.8-5.2); SODIUM 139 meq/L (135-145)
[2016-12-14 05:51] LABS: PLATELET MORPHOLOGY COMMENT NORMAL MORPHOLOGY (NORM)
[2016-12-14] MEDS: Sucralfate Tab 1 GM TAB PO SCH (07:06)
[2016-12-14 07:57] VITALS: RESP 16; TEMP 97.7
--- NOTE | 2016-12-14 08:48 | PDOC(PROG) ---
Date and Time of Service: 12/14/2016 8:45 AM Interval History: Subjective Patient feels better than yesterday, complained from some headache and some swelling in her hands but the pain at chest resolved. Objective : Data - Labs CBC and BMP: 12/14/16 05:13 12/14/16 05:13 Labs - Last 24 Hours: Laboratory Results 12/13/16 12/13/16 12/13/16 Range/Units 09:00 13:10 15:26 WBC (4.8-10.8) 10^3/uL RBC (4.20-5.40) 10^6/uL Hgb (12.0-16.0) g/dL Hct (37.0-47.0) % MCV (81-99) FL MCH (27-31) PG MCHC (33-37) g/dL RDW Std Deviation (39-50) fL RDW Coeff of Sam (11.5-14.5) % Plt Count (140-350) 10*3/uL MPV (7.4-12.2) FL Immature Gran % (Auto) (0-5) % Neut % (Auto) (50-80) % Lymph % (Auto) (10-50) % [place] % (Auto) (5-15) % Eos % (Auto) (0-8) % Baso % (Auto) (0-1) % Immature Gran # (Auto) 10*3/UL Neut # (Auto) 10*3/UL Lymph # (Auto) 10*3/uL [place] # (Auto) (0.3-0.8) 10*3/UL Eos # (Auto) 10*3/UL Baso # (Auto) 10*3/UL WBC Morphology Comment (NORM) Plt Morphology Comment (NORM) RBC Morph Comment (NORM) Sodium (135-145) meq/L Potassium (3.8-5.2) meq/L Chloride (98-112) meq/L Carbon Dioxide (23-33) meq/L Anion Gap (5-20) BUN (7-22) mg/dL Creatinine (0.50-1.20) mg/dL Estimated GFR (>60 ml/min/1.73m(2)) BUN/Creatinine Ratio (6-20) Glucose (78-110) mg/dL Calculated Osmolality (267-292) mOsm/kg Calcium (8.7-10.7) mg/dL Total Creatine Kinase 429 H 341 H (30-135) IU/L CK-MB (CK-2) 2.84 1.88 (0.00-5.00) NG/DL CK-MB (CK-2) Ratio Not Reportable 0.55 Troponin I < 0.012 < 0.012 (< 0.040) ng/mL Ur Collection Type Clean catch urine Urine Color Yellow Urine Clarity Clear (CLEAR) Urine pH 6.0 (5.0-8.5) Ur Specific [place] 1.015 (1.005-1.030) Urine Protein Trace (NEG) mg/dl Urine Glucose (UA) Negative (NEG) mg/dL Urine Ketones 15 (NEG) Urine Occult Blood Negative (NEG) Urine Nitrate Negative (NEG) Urine Bilirubin Negative (NEG) Urine Urobilinogen 1.0 (0.2) EU/dL Ur Leukocyte Esterase Trace (NEG) Urine RBC 1-3 (NONE) /hpf Urine WBC 7-10 (NONE) Ur Squamous Epith Cells Moderate (NONE) Ur Renal Epithelial Cell None (NONE) Urine Crystals None Urine Bacteria Few (NONE) Urine Casts None (NONE) Urine Mucus None (NONE) Urine Trichomonas None (NONE) Urine Yeast None (NONE) Ur Culture Indicated? Culture set 12/14/16 Range/Units 05:13 WBC 4.68 L (4.8-10.8) 10^3/uL RBC 3.86 L (4.20-5.40) 10^6/uL Hgb 9.6 L (12.0-16.0) g/dL Hct 29.8 L (37.0-47.0) % MCV 77.2 L (81-99) FL MCH 24.9 L (27-31) PG MCHC 32.2 L (33-37) g/dL RDW Std Deviation 47.6 (39-50) fL RDW Coeff of Sam 17.6 H (11.5-14.5) % Plt Count 261 (140-350) 10*3/uL MPV 9.9 (7.4-12.2) FL Immature Gran % (Auto) 0 (0-5) % Neut % (Auto) 31.5 L (50-80) % Lymph % (Auto) 50.2 H (10-50) % [place] % (Auto) 16.0 H (5-15) % Eos % (Auto) 2.1 (0-8) % Baso % (Auto) 0.2 (0-1) % Immature Gran # (Auto) 0 10*3/UL Neut # (Auto) 1.47 10*3/UL Lymph # (Auto) 2.35 10*3/uL [place] # (Auto) 0.75 (0.3-0.8) 10*3/UL Eos # (Auto) 0.10 10*3/UL Baso # (Auto) 0.01 10*3/UL WBC Morphology Comment Normal morphology (NORM) Plt Morphology Comment Normal morphology (NORM) RBC Morph Comment Normal morphology (NORM) Sodium 139 (135-145) meq/L Potassium 3.4 L (3.8-5.2) meq/L Chloride 106 (98-112) meq/L Carbon Dioxide 30 (23-33) meq/L Anion Gap 3 L (5-20) BUN 7 (7-22) mg/dL Creatinine 0.5 (0.50-1.20) mg/dL Estimated GFR > 60 (>60 ml/min/1.73m(2)) BUN/Creatinine Ratio 14.00 (6-20) Glucose 80 (78-110) mg/dL Calculated Osmolality 284.0 (267-292) mOsm/kg Calcium 7.9 L (8.7-10.7) mg/dL Total Creatine Kinase (30-135) IU/L CK-MB (CK-2) (0.00-5.00) NG/DL CK-MB (CK-2) Ratio Troponin I (< 0.040) ng/mL Ur Collection Type Urine Color Urine Clarity (CLEAR) Urine pH (5.0-8.5) Ur Specific [place] (1.005-1.030) Urine Protein (NEG) mg/dl Urine Glucose (UA) (NEG) mg/dL Urine Ketones (NEG) Urine Occult Blood (NEG) Urine Nitrate (NEG) Urine Bilirubin (NEG) Urine Urobilinogen (0.2) EU/dL Ur Leukocyte Esterase (NEG) Urine RBC (NONE) /hpf Urine WBC (NONE) Ur Squamous Epith Cells (NONE) Ur Renal Epithelial Cell (NONE) Urine Crystals Urine Bacteria (NONE) Urine Casts (NONE) Urine Mucus (NONE) Urine Trichomonas (NONE) Urine Yeast (NONE) Ur Culture Indicated? Objective : Exam - General General Appearance: No Acute Distress, Cooperative, Thin - Head Head Exam: Normal Inspection - Eye Eye Exam: Normal Appearance - Neck Neck Exam: Normal Inspection - Respiratory Respiratory Exam: Clear to Auscultation - Bilaterally - Cardiovascular Cardiovascular Exam: RRR - GI/Abdominal GI/Abdominal Exam: Normal Bowel Sounds, Non Tender, Non Distended, Soft - Rectal Rectal Exam: Deferred - External Exam: Deferred - Extremities Extremities Exam: Normal Inspection Additional Extremities Exam Details: I don't see edema in the hands or the legs - Back Back Exam: Normal Inspection - Neurological Neurological Exam: Alert, Oriented x 3, CN II-XII Intact - Psychiatric Psychiatric Exam: Normal Affect Assessment and Plan - Patient Problems (1) Anemia Status: Acute Comment: This is iron deficiency anemia, EGD done back in August showed marginal ulcers, I spoke with Dr. Melton yesterday he suggested that she needs to have another endoscopy with her physicians if she still have the ulcers then she need to have surgery done to reverse the bypass, I did explain that to her (2) Chest pain Status: Acute Comment: This is resolved, nonanginal, I think probably related to the anemia. The enzymes were negative EKG no significant changes. She'll follow-up with her primary and that's her decide if she wants her have a stress test (3) Seizure disorder Status: Acute Comment: Same medications
[2016-12-14] MEDS: POTASSIUM CHLORIDE 20 MEQ TAB PO SCH (08:52)
--- NOTE | 2016-12-14 10:19 | DCSUMMARY ---
Hospitalization Summary Admit Date: 12/13/16 Discharge Date: 12/14/16 Hospital Course: Discharge diagnoses 1. Symptomatic iron deficiency anemia status post 2 units of blood 2. History of several large deep ulcers at the gastrojejunal anastomosis and history of one shallow also present at the Y anastomosis. 3. History of previous gastric bypass surgery 4. History of seizure disorder 5. History of cholecystectomy 6. Subacute left anterolateral sixth through ninth rib fractures Hospital course This is a 51 years old female with medical history syncope for history of seizure disorder, history of previous gastric bypass surgery who came into the hospital because of history of pain felt in the upper left part of the chest and in the left arm going on for 2 days,some shortness of breath, dizziness. She did report some vomiting. The pain was on and off and at times constant last less than hour she said. She came into the ER and she was tearful and tremulous she didn't sleep for 6 days. She did report to them some swelling in her hands and feet. She was given morphine and Ativan lab tests revealed anemia with her hemoglobin being lower than the previous level and hence the admission. Exam when I saw her she looked older than her stated age, she was edentulous. Her anemia looked iron deficiency anemia. We gave 2 units of blood. I did the review outpatient records she had an EGD done in [place] [address] Valenzuela which reported several large deep ulcers were present at the gastrojejunal anastomosis. In addition she had one shallow linear ulcer present at the Y anastomosis. Post transfusion her hemoglobin improved from 7.9 to 9.6. The next day she did not have chest pain she reported some swelling she felt in her hands but I did not see significant edema in her legs or hands. I did speak with Dr. Miller and he suggested that she follow-up with her physician for repeat endoscopy to see whether the ulcers healed if not she may need to have surgery to reverse the gastric bypass. We discharged her on Protonix and also Carafate. We booked her as an outpatient with her primary and Dr. Valenzuela. We did also check Repeat cardiac enzymes they remained negative. Chest pain looks nonanginal. I did leave it up to the primary to decide if the she wanted her to have a stress test later on which can be done as an outpatient. When She came into the ER her d-dimer was elevated and she had a CT of the abdomen and chest there is no evidence of PE, there is multi-level degenerative disc disease and subacute left anterolateral lateral sixth through ninth rib fractures, she had a fall late last year that caused the fractures. Chest x- ray was negative Laboratory Results 12/13/16 12/13/16 12/13/16 Range/Units 02:48 03:12 09:00 WBC 9.90 (4.8-10.8) 10^3/uL RBC 3.46 L (4.20-5.40) 10^6/uL Hgb 7.9 L (12.0-16.0) g/dL Hct 25.8 L (37.0-47.0) % MCV 74.6 L (81-99) FL MCH 22.8 L (27-31) PG MCHC 30.6 L (33-37) g/dL RDW Std Deviation 44.6 (39-50) fL RDW Coeff of Sam 17.1 H (11.5-14.5) % Plt Count 356 H (140-350) 10*3/uL MPV 10.2 (7.4-12.2) FL Immature Gran % (Auto) 0.1 (0-5) % Neut % (Auto) 64.5 (50-80) % Lymph % (Auto) 18.2 (10-50) % [place] % (Auto) 16.8 H (5-15) % Eos % (Auto) 0.3 (0-8) % Baso % (Auto) 0.1 (0-1) % Immature Gran # (Auto) 0.01 10*3/UL Neut # (Auto) 6.39 10*3/UL Lymph # (Auto) 1.80 10*3/uL [place] # (Auto) 1.66 H (0.3-0.8) 10*3/UL Eos # (Auto) 0.03 10*3/UL Baso # (Auto) 0.01 10*3/UL WBC Morphology Comment Normal morphology (NORM) Plt Morphology Comment Normal morphology (NORM) RBC Morph Comment See comments (NORM) D-Dimer 1.39 H (0.00-0.59) mg/L Sodium 136 (135-145) meq/L Potassium 3.5 L (3.8-5.2) meq/L Chloride 100 (98-112) meq/L Carbon Dioxide 26 (23-33) meq/L Anion Gap 10 (5-20) BUN 20 (7-22) mg/dL Creatinine 0.6 (0.50-1.20) mg/dL Estimated GFR > 60 (>60 ml/min/1.73m(2)) BUN/Creatinine Ratio 33.33 H (6-20) Glucose 103 (78-110) mg/dL Calculated Osmolality 284.0 (267-292) mOsm/kg Lactic Acid 0.8 (0.70-2.10) MMOL/L Calcium 8.5 L (8.7-10.7) mg/dL Magnesium 1.9 (1.6-2.4) mg/dL Iron 13 L (37-170) UG/DL TIBC 422 (265-497) ug/dL % Saturation 3.08 L (14-50) % Ferritin 16.60 (12.00-336.70) ng/mL Total Bilirubin 0.7 (0.3-1.2) mg/dL AST 54 H (8-39) IU/L ALT 26 (9-52) IU/L Alkaline Phosphatase 130 H (38-126) IU/L Total Creatine Kinase 429 H (30-135) IU/L CK-MB (CK-2) 2.84 (0.00-5.00) NG/DL CK-MB (CK-2) Ratio Not Reportable Troponin I < 0.012 < 0.012 (< 0.040) ng/mL NT-Pro-B Natriuret Pep 556 H (0-125) PG/ML Total Protein 7.1 (6.1-8.0) g/dL Albumin 3.6 (3.5-4.8) g/dL Globulin 3.5 (2.50-4.10) g/dL Albumin/Globulin Ratio 1.00 L (1.3-2.0) mg/g Vitamin B12 932 H (239-931) pg/mL Serum Folate > 20.0 H (2.76-20.0) NG/ML TSH 0.359 (0.2700-4.2000) uIU/mL Free T4 1.57 (0.93-1.71) ng/dL Ur Collection Type Urine Color Urine Clarity (CLEAR) Urine pH (5.0-8.5) Ur Specific [place] (1.005-1.030) Urine Protein (NEG) mg/dl Urine Glucose (UA) (NEG) mg/dL Urine Ketones (NEG) Urine Occult Blood (NEG) Urine Nitrate (NEG) Urine Bilirubin (NEG) Urine Urobilinogen (0.2) EU/dL Ur Leukocyte Esterase (NEG) Urine RBC (NONE) /hpf Urine WBC (NONE) Ur Squamous Epith Cells (NONE) Ur Renal Epithelial Cell (NONE) Urine Crystals Urine Bacteria (NONE) Urine Casts (NONE) Urine Mucus (NONE) Urine Trichomonas (NONE) Urine Yeast (NONE) Ur Culture Indicated? Blood Type O POSITIVE Antibody Screen Negative Crossmatch See Detail 12/13/16 12/13/16 12/14/16 Range/Units 13:10 15:26 05:13 WBC 4.68 L (4.8-10.8) 10^3/uL RBC 3.86 L (4.20-5.40) 10^6/uL Hgb 9.6 L (12.0-16.0) g/dL Hct 29.8 L (37.0-47.0) % MCV 77.2 L (81-99) FL MCH 24.9 L (27-31) PG MCHC 32.2 L (33-37) g/dL RDW Std Deviation 47.6 (39-50) fL RDW Coeff of Sam 17.6 H (11.5-14.5) % Plt Count 261 (140-350) 10*3/uL MPV 9.9 (7.4-12.2) FL Immature Gran % (Auto) 0 (0-5) % Neut % (Auto) 31.5 L (50-80) % Lymph % (Auto) 50.2 H (10-50) % [place] % (Auto) 16.0 H (5-15) % Eos % (Auto) 2.1 (0-8) % Baso % (Auto) 0.2 (0-1) % Immature Gran # (Auto) 0 10*3/UL Neut # (Auto) 1.47 10*3/UL Lymph # (Auto) 2.35 10*3/uL [place] # (Auto) 0.75 (0.3-0.8) 10*3/UL Eos # (Auto) 0.10 10*3/UL Baso # (Auto) 0.01 10*3/UL WBC Morphology Comment Normal morphology (NORM) Plt Morphology Comment Normal morphology (NORM) RBC Morph Comment Normal morphology (NORM) D-Dimer (0.00-0.59) mg/L Sodium 139 (135-145) meq/L Potassium 3.4 L (3.8-5.2) meq/L Chloride 106 (98-112) meq/L Carbon Dioxide 30 (23-33) meq/L Anion Gap 3 L (5-20) BUN 7 (7-22) mg/dL Creatinine 0.5 (0.50-1.20) mg/dL Estimated GFR > 60 (>60 ml/min/1.73m(2)) BUN/Creatinine Ratio 14.00 (6-20) Glucose 80 (78-110) mg/dL Calculated Osmolality 284.0 (267-292) mOsm/kg Lactic Acid (0.70-2.10) MMOL/L Calcium 7.9 L (8.7-10.7) mg/dL Magnesium (1.6-2.4) mg/dL Iron (37-170) UG/DL TIBC (265-497) ug/dL % Saturation (14-50) % Ferritin (12.00-336.70) ng/mL Total Bilirubin (0.3-1.2) mg/dL AST (8-39) IU/L ALT (9-52) IU/L Alkaline Phosphatase (38-126) IU/L Total Creatine Kinase 341 H (30-135) IU/L CK-MB (CK-2) 1.88 (0.00-5.00) NG/DL CK-MB (CK-2) Ratio 0.55 Troponin I < 0.012 (< 0.040) ng/mL NT-Pro-B Natriuret Pep (0-125) PG/ML Total Protein (6.1-8.0) g/dL Albumin (3.5-4.8) g/dL Globulin (2.50-4.10) g/dL Albumin/Globulin Ratio (1.3-2.0) mg/g Vitamin B12 (239-931) pg/mL Serum Folate (2.76-20.0) NG/ML TSH (0.2700-4.2000) uIU/mL Free T4 (0.93-1.71) ng/dL Ur Collection Type Clean catch urine Urine Color Yellow Urine Clarity Clear (CLEAR) Urine pH 6.0 (5.0-8.5) Ur Specific [place] 1.015 (1.005-1.030) Urine Protein Trace (NEG) mg/dl Urine Glucose (UA) Negative (NEG) mg/dL Urine Ketones 15 (NEG) Urine Occult Blood Negative (NEG) Urine Nitrate Negative (NEG) Urine Bilirubin Negative (NEG) Urine Urobilinogen 1.0 (0.2) EU/dL Ur Leukocyte Esterase Trace (NEG) Urine RBC 1-3 (NONE) /hpf Urine WBC 7-10 (NONE) Ur Squamous Epith Cells Moderate (NONE) Ur Renal Epithelial Cell None (NONE) Urine Crystals None Urine Bacteria Few (NONE) Urine Casts None (NONE) Urine Mucus None (NONE) Urine Trichomonas None (NONE) Urine Yeast None (NONE) Ur Culture Indicated? Culture set Blood Type Antibody Screen Crossmatch Discharge instruction Diet regular Activity as tolerated Medications Home Medications Medication Instructions Recorded Confirmed Type RX: Divalproex Sodium [Depakote] 500 mg PO BID tab 10/06/15 12/13/16 History RX: Estradiol 1 tab PO DAILY #30 tab 08/11/16 12/13/16 Clinic RX: clonazePAM [KlonoPIN] 1 mg PO Q8H PRN #15 tab 11/28/16 12/13/16 Rx RX: Pantoprazole Sodium [Protonix] 40 mg PO DAILY #30 tablet. 12/14/16 Rx RX: Potassium Chloride [Klor-Con] 20 meq PO DAILY #6 tab 12/14/16 Rx RX: Sucralfate [Carafate] 1 gm PO AC HS #120 tab 12/14/16 Rx RX: oxyCODONE/APAP 5/325 Tab 1 tab PO QID PRN #12 tab 12/14/16 Rx [Percocet 5/325 Tab] Follow-up with her PCP 1-2 weeks, with Dr. Valenzuela in 1-2 weeks Condition at discharge was stable for discharge Exam - Vitals Vital Signs: Vital Signs Temperature 97.7 F Temperature Source Oral Pulse Rate [Pulse Oximeter] 56 Pulse Rate 67 Respiratory Rate 16 Blood Pressure [Left Arm] 91/51 Blood Pressure 98/64 Pulse Ox 98 Oxygen Flow Rate 2 Oxygen Delivery Method Room Air Height 5 ft 3 in Weight 120 lb 4.8 oz Patient Problems - Patient Problem List (1) Anemia Status: Acute (2) Chest pain Status: Acute (3) Seizure disorder Status: Acute
[2016-12-14] MEDS: Pantoprazole Inj 40 MG in Normal Saline Flush 10 ML IVP SCH (10:20)
== END 2016-12-14 10:36 | disposition home or self-care (01) ==
LOC: ER 02:36 → MED/SURG 05:59
PROVIDERS: ADMIT Internal Medicine; ATTEND Internal Medicine
DX: D50.8 Other iron deficiency anemias (principal); R07.9 Chest pain, unspecified; G40.909 Epilepsy, unspecified, not intractable, without status epilepticus; M79.602 Pain in left arm; R06.02 Shortness of breath; R42 Dizziness and giddiness
CPT/HCPCS: 36415 ×2; 36430; 71010; 71275; 74160; 80048; 80053; 81001; 81003; 82550; 82553; 82607; 82728; 82746; 83540; 83550; 83605; 83735; 83880; 84439; 84443; 84484; 85025 ×2; 85379; 86850; 86900; 86901; 86922; 87088; 87641; 90471; 93005; 93010; 94761 ×2; 96374; 96375 ×2; 96376; 99285 ×2; J2765; P9016; 90656; J2060; J2270; J2405; J3490; J7030; J7040

== ENCOUNTER → 2017-01-03 | Outpatient (CLI) | payer OTHER ==
[2017-01-03 11:51] LABS: HEMATOCRIT 37.7 % (37.0-47.0); HEMOGLOBIN 11.9 g/dL (12.0-16.0); MEAN CORPUSCULAR HEMOGLOBIN 24.6 PG (27-31); MEAN CORPUSCULAR HGB CONC 31.6 g/dL (33-37); MEAN CORPUSCULAR VOLUME 78.1 FL (81-99); MEAN PLATELET VOLUME 10.9 FL (7.4-12.2); RED BLOOD COUNT 4.83 10^6/uL (4.20-5.40)
[2017-01-03 12:44] LABS: FERRITIN 12.1 ng/mL (12.00-336.70)
== END ==
LOC: LAB 11:26
PROVIDERS: ATTEND Internal Medicine Gastroenterology
DX: R63.4 Abnormal weight loss (principal); R10.13 Epigastric pain; R11.2 Nausea with vomiting, unspecified; R10.84 Generalized abdominal pain
CPT/HCPCS: 36415; 82607; 82728; 83540; 83550; 83921; 85027

== ENCOUNTER → 2017-01-31 | Outpatient (CLI) | payer OTHER ==
[2017-01-31 11:54] LABS: BASOPHILS # (AUTO) 0.03 10*3/UL; BASOPHILS % (AUTO) 0.4 % (0-1); EOSINOPHILS # (AUTO) 0.25 10*3/UL; EOSINOPHILS % (AUTO) 3.4 % (0-8); HEMOGLOBIN 11.3 g/dL (12.0-16.0); LYMPHOCYTES # (AUTO) 3.82 10*3/uL; MEAN CORPUSCULAR HEMOGLOBIN 26.1 PG (27-31); MEAN CORPUSCULAR HGB CONC 31.4 g/dL (33-37); MEAN CORPUSCULAR VOLUME 83.1 FL (81-99); MEAN PLATELET VOLUME 10.2 FL (7.4-12.2); MONOCYTES # (AUTO) 0.81 10*3/UL (0.3-0.8); MONOCYTES % (AUTO) 11.1 % (5-15); NEUTROPHILS # (AUTO) 2.35 10*3/UL; NEUTROPHILS % (AUTO) 32.5 % (50-80); RED BLOOD COUNT 4.33 10^6/uL (4.20-5.40)
[2017-01-31 12:01] LABS: PLATELET MORPHOLOGY COMMENT NORMAL MORPHOLOGY (NORM); RBC MORPHOLOGY COMMENT NORMAL MORPHOLOGY (NORM); WBC MORPHOLOGY COMMENT NORMAL MORPHOLOGY (NORM)
== END ==
LOC: LAB 11:34
PROVIDERS: ATTEND Internal Medicine
DX: D64.9 Anemia, unspecified (principal)
CPT/HCPCS: 36415; 82728; 83540; 83550; 85025

== ENCOUNTER 2017-04-04 19:30 | Emergency (ER) | payer OTHER ==
[2017-04-04] MEDS ORDERED: LORazepam 2 MG/1 ML VIAL ONE (19:38)
[2017-04-04] MEDS ORDERED: Sodium Chloride 0.9% 1,000 ML PRIMARY IV ONE (19:42)
[2017-04-04] MEDS ORDERED: LORazepam 2 MG/1 ML VIAL IVP ONE (19:42)
[2017-04-04] MEDS ORDERED: ONDANSETRON 4 MG/2 ML VIAL IVP ONE (19:42)
--- NOTE | 2017-04-04 19:46 | PDOC ---
Seizure HPI - General Chief Complaint: Headache Stated Complaint: Headache, nausea Date Seen by Provider: 04/04/17 Time Seen by Provider: 19:43 Source: POSITIVE: Patient Exam Limitations: POSITIVE: No limitations Nurse's Notes Reviewed & Considered: Yes - History of Present Illness Initial Comments: Patient was brought in having seizures. This patient with history of seizures presently on Depakote has been having 2 seizures a day for the last 3 days. Her reports that there've been no fever chills or sweats, no nausea vomiting or diarrhea. He is a poor historian and further information is limited. He is unsure of who her neurologist is. Timing: REPORTS: Abrupt Duration: 1/2 hour Severity: Moderate Quality: REPORTS: Other (Seizure, generalized shaking with carpopedal spasms evident.) Witnessed Seizure?: Yes Preceding Symptoms/Context (specify in comments): REPORTS: None Character of Seizure(s): REPORTS: Partially Unresponsive, Gen. "Shaking all Over " Post-ictal Symptoms: REPORTS: None Recently seen/treated/hospitalized: No Any Prior Injuries Related to Current Complaint?: No - Patient Home Medications Home Medications: Home Medications Divalproex Sodium [Depakote] 500 mg PO BID tab 10/06/15 Estradiol 1 tab PO DAILY #30 tab 08/11/16 clonazePAM [KlonoPIN] 1 mg PO Q8H PRN #15 tab 11/28/16 Pantoprazole Sodium [Protonix] 40 mg PO DAILY #30 tablet. 12/14/16 Potassium Chloride [Klor-Con] 20 meq PO DAILY #6 tab 12/14/16 Sucralfate [Carafate] 1 gm PO AC HS #120 tab 12/14/16 oxyCODONE/APAP 5/325 Tab [Percocet 5/325 Tab] 1 tab PO QID PRN #12 tab - Patient Allergies Allergies/Adverse Reactions: Allergies Allergy/AdvReac Type Severity Reaction Status Date / Time nickel Allergy Severe DELAYED Verified 04/04/17 20:40 HEALING TKA codeine [Codeine] Allergy Intermediate ITCHING Verified 04/04/17 20:40 Penicillins Allergy Intermediate ANAPHLAXIS Verified 04/04/17 20:40 Sulfa (Sulfonamide Allergy Intermediate RASH Verified 04/04/17 20:40 Antibiotics) tramadol AdvReac Intermediate NAUSEA Verified 04/04/17 20:40 hydrocodone AdvReac VOMITING Verified 04/04/17 20:40 SEAFOOD Allergy Anaphylaxis Uncoded 04/04/17 20:40 Past Medical History - heen HEENT History: Dentures/Partials, Other (please comment) Additional HEENT History: HAS TONGUE piercing. DENTURES UPPER AND LOWER Cardiovascular History: Denies History Respiratory History: Denies History Additional Respiratory History: BRUISED RIBS FROM RECENT ER VISIT APPROX 2-3 WEEKS AGO Gastrointestinal History: GERD, Irritable Bowel Syndrome, Peptic Ulcer Disease, Gallbladder Disease Additional Gastrointestinal History: HX OF GASTRIC BYPASS Genitourinary History: Denies History Additional Genitourinary History: HAS NOT HAD UTI IN A LONG TIME Endocrine History: Other (please comment) Additional Endocrine History: STATES SHE WAS DIABETIC PRIOR TO GASTRIC BYPASS Musculoskeletal History: Arthritis, Back Pain, Joint Pain, Other (please comment ) Prosthesis or Implant: Yes (RIGHT KNEE/LEFT 3RD FINGER) Additional Musculoskeletal History: R TKA SEP 2013 (3 surgeries total), and has had manipulation of right knee under anesthesia since. CHRONIC BACK PAIN Neurological History: Seizures, Migraines, Motion Sickness Additional Neurological History: INSOMNIA Blood Disorders: Anemia Additional Blood Disorders History: LABS ABNORMAL. SEE NOTE IN ANESTHESIA CHART REVIEW FOR FURTHER NOTE. ANEMIA Psychiatric History: Depression, Anxiety Disorders, Substance Abuse Additional Psychiatric History: past history of substance abuse History of Sexually Transmitted Diseases: No Cancer History: Denies History History of MDRO: No History of Other Communicable Diseases: No Alcohol Use: None Substance Use Type: None, Other (please comment) Previous Surgical History: Yes Type / Date of Surgery: RIGHT TKA X3 AND MANIPULATION/APPY/ DOMINGUEZ/ GASTRIC BYPASS 2007--weight dropped from 250 lbs to 125 after surgery/ HYST/ BLADDER REPAIR X3/ RIGHT INGUINAL HERNIORRHAPHY/ RIGHT FOOT BUNIONECTOMY/SALPINGO- OOPHERECTOMY/ RIGHT RCR/CTR Anesthesia Reactions: No Malignant Hyperthermia: No Significant Family History: Heart disease, Cancer, Diabetes, Hypertension Additional Family History: FATHER HAD PROSTATE CA/CVA ROS - Limitations ROS Limitations: Clinical Condition (Patient unable to provide review of systems because of altered mental status and seizure.) Seizure Exam - General Appearance General Appearance: POSITIVE: Convulsing - HEENT HEENT: POSITIVE: Head Inspection Nml, Eyes Inspection Nml, Ears Inspection Nml, Nose Inspection Nml, Oral/Dental Inspect. Nml, Pharynx Inspect. Nml, PERRL, EOMI - Pupil Size Pupil Size: 5 mm: Bilateral - Neck Neck: POSITIVE: Non Tender, Neck Supple, Trachea Midline, Nexus Criteria Negative - Respiratory Respiratory: POSITIVE: Chest Non Tender, No Ecchymosis, Breath Sounds Normal, No Respiratory Distress - Cardiovascular Cardiovascular: POSITIVE: Regular Rate and Rhythm, Heart Sounds Normal, No Murmur, No Gallop, No JVD, No Pulse Deficit - Abdomen Abdomen: Soft: (All Quadrants), Normal Bowel Sounds: (All Quadrants), Denies Tenderness: (All Quadrants), No Splenomegaly: (All Quadrants), No Hepatomegaly: (All Quadrants), No Guarding: (All Quadrants), No Rebound: (All Quadrants), No Palpable Pulse: (All Quadrants), No Palpabale Mass: (All Quadrants), No Distention: (All Quadrants), No Rigidity: (All Quadrants) - Skin Skin: POSITIVE: Intact, Normal For Race, Warm, Dry, No Rash - Extremities Extremity: Non-Tender: (All Extremities), Normal ROM: (All Extremities), Normal Inspection: (All Extremities) - Observed Seizure Activity Observed Seizure Activity in ED: POSITIVE: Generalized Seizure Progress - Results Reviewed by me Lab Results Reviewed: Yes Lab Results:: Laboratory Results 04/04/17 04/04/17 04/04/17 Range/Units 19:40 19:46 19:59 WBC 6.64 (4.8-10.8) 10^3/uL RBC 4.67 (4.20-5.40) 10^6/uL Hgb 14.0 (12.0-16.0) g/dL Hct 43.6 (37.0-47.0) % MCV 93.4 (81-99) FL MCH 30.0 (27-31) PG MCHC 32.1 L (33-37) g/dL RDW Std Deviation 55.0 H (39-50) fL RDW Coeff of Sam 16.6 H (11.5-14.5) % Plt Count 245 (140-350) 10*3/uL MPV 10.9 (7.4-12.2) FL Immature Gran % (Auto) 0.2 (0-5) % Neut % (Auto) 28.3 L (50-80) % Lymph % (Auto) 57.5 H (10-50) % [place] % (Auto) 10.4 (5-15) % Eos % (Auto) 3.0 (0-8) % Baso % (Auto) 0.6 (0-1) % Immature Gran # (Auto) 0.01 10*3/UL Neut # (Auto) 1.88 10*3/UL Lymph # (Auto) 3.82 10*3/uL [place] # (Auto) 0.69 (0.3-0.8) 10*3/UL Eos # (Auto) 0.20 10*3/UL Baso # (Auto) 0.04 10*3/UL WBC Morphology Comment Normal morphology (NORM) Plt Morphology Comment Normal morphology (NORM) RBC Morph Comment Normal morphology (NORM) VBG pH 7.28 L (7.32-7.42) VBG pCO2 55 (45-55) mmHg VBG HCO3 26 (22-26) mmol/L VBG Base Excess -1 (-2-2) MMOL/L Sodium 142 (135-145) meq/L Potassium 4.7 (3.8-5.2) meq/L Chloride 100 (98-112) meq/L Carbon Dioxide 24 (23-33) meq/L Anion Gap 18 (5-20) BUN 13 (7-22) mg/dL Creatinine 0.7 (0.50-1.20) mg/dL Estimated GFR > 60 (>60 ml/min/1.73m(2)) BUN/Creatinine Ratio 18.57 (6-20) Glucose 83 (78-110) mg/dL Calculated Osmolality 292.0 (267-292) mOsm/kg Lactic Acid 9.0 H (0.70-2.10) MMOL/L Calcium 9.1 (8.7-10.7) mg/dL Magnesium 2.1 (1.6-2.4) mg/dL Total Bilirubin 0.7 (0.3-1.2) mg/dL AST 35 (8-39) IU/L ALT 37 (9-52) IU/L Alkaline Phosphatase 85 (38-126) IU/L C-Reactive Protein < 0.5 (0.0-0.9) mg/dL Total Protein 7.8 (6.1-8.0) g/dL Albumin 4.4 (3.5-4.8) g/dL Globulin 3.4 (2.50-4.10) g/dL Albumin/Globulin Ratio 1.20 L (1.3-2.0) mg/g TSH 3.67 (0.2700-4.2000) uIU/mL Free T4 0.66 L (0.93-1.71) ng/dL Serum HCG, Qual Negative Ur Collection Type U Specif Grav (Refrac) Urine Opiates Screen (NEG) Ur Buprenorphine (NEG) Ur Oxycodone Screen (NEG) Urine Methadone Screen (NEG) Ur Propoxyphene Screen (NEG) Barbiturate Screen (NEG) U Tricyclic Antidepress (NEG) Phencyclidine Screen (NEG) Amphetamines Screen (NEG) U Methamphetamines Scrn (NEG) Benzodiazepines Screen (NEG) Cocaine Screen (NEG) U Marijuana (THC) Screen (NEG) Serum Alcohol < 10 (0-10) mg/dL 04/04/17 Range/Units 21:40 WBC (4.8-10.8) 10^3/uL RBC (4.20-5.40) 10^6/uL Hgb (12.0-16.0) g/dL Hct (37.0-47.0) % MCV (81-99) FL MCH (27-31) PG MCHC (33-37) g/dL RDW Std Deviation (39-50) fL RDW Coeff of Sam (11.5-14.5) % Plt Count (140-350) 10*3/uL MPV (7.4-12.2) FL Immature Gran % (Auto) (0-5) % Neut % (Auto) (50-80) % Lymph % (Auto) (10-50) % [place] % (Auto) (5-15) % Eos % (Auto) (0-8) % Baso % (Auto) (0-1) % Immature Gran # (Auto) 10*3/UL Neut # (Auto) 10*3/UL Lymph # (Auto) 10*3/uL [place] # (Auto) (0.3-0.8) 10*3/UL Eos # (Auto) 10*3/UL Baso # (Auto) 10*3/UL WBC Morphology Comment (NORM) Plt Morphology Comment (NORM) RBC Morph Comment (NORM) VBG pH (7.32-7.42) VBG pCO2 (45-55) mmHg VBG HCO3 (22-26) mmol/L VBG Base Excess (-2-2) MMOL/L Sodium (135-145) meq/L Potassium (3.8-5.2) meq/L Chloride (98-112) meq/L Carbon Dioxide (23-33) meq/L Anion Gap (5-20) BUN (7-22) mg/dL Creatinine (0.50-1.20) mg/dL Estimated GFR (>60 ml/min/1.73m(2)) BUN/Creatinine Ratio (6-20) Glucose (78-110) mg/dL Calculated Osmolality (267-292) mOsm/kg Lactic Acid (0.70-2.10) MMOL/L Calcium (8.7-10.7) mg/dL Magnesium (1.6-2.4) mg/dL Total Bilirubin (0.3-1.2) mg/dL AST (8-39) IU/L ALT (9-52) IU/L Alkaline Phosphatase (38-126) IU/L C-Reactive Protein (0.0-0.9) mg/dL Total Protein (6.1-8.0) g/dL Albumin (3.5-4.8) g/dL Globulin (2.50-4.10) g/dL Albumin/Globulin Ratio (1.3-2.0) mg/g TSH (0.2700-4.2000) uIU/mL Free T4 (0.93-1.71) ng/dL Serum HCG, Qual Ur Collection Type Voided specimen U Specif Grav (Refrac) 1.013 Urine Opiates Screen Negative (NEG) Ur Buprenorphine Negative (NEG) Ur Oxycodone Screen Negative (NEG) Urine Methadone Screen Negative (NEG) Ur Propoxyphene Screen Negative (NEG) Barbiturate Screen Negative (NEG) U Tricyclic Antidepress Negative (NEG) Phencyclidine Screen Negative (NEG) Amphetamines Screen Negative (NEG) U Methamphetamines Scrn Negative (NEG) Benzodiazepines Screen Positive H (NEG) Cocaine Screen Negative (NEG) U Marijuana (THC) Screen Negative (NEG) Serum Alcohol (0-10) mg/dL - Patient's Progress Pain Medication Addressed: POSITIVE: Yes Re-Examine Time:: 21:56 Status: POSITIVE: Improved MDM / ED Course: Patient was examined, an IV started, blood drawn and sent to the lab for studies , patient received a liter of normal saline 2 mg of Ativan and a gram of Tylenol , and 50 mg of IV Benadryl. During her second episode of generalized body shaking I noted that she was tracking me with her eyes. At that point in time I told her to look at me which she was able to do. I then told her that this appears to be a pseudoseizure, and that she can control this. I told her to take slow deep breaths and to calm down and relax. She immediately did this and had no further seizures. Findings: CBC, CMP, and thyroid are all unremarkable. Urine drug screen is positive for benzodiazepines. Assessment: Pseudoseizure. Plan: Discharge home, follow up with her neurologist and her primary care physician. Return to the emergency room if there are concerns. - Consult Counseled: POSITIVE: Patient, Family, RE: Lab Results, RE: Radiology Results, RE : DX, RE: Need for F/U Patient Care Time - Estimated PCT Patient Care Time (In Minutes): 60 Vital Signs - Recent Vital Signs Vital Signs: Vital Signs (Last 8 hours) Temp Pulse Resp BP Pulse Ox 04/04/17 19:40 98.2 F 71 18 102/72 97 - VS Reviewed Vital Signs Reviewed: Yes Discharge Clinical Impression: Psychogenic nonepileptic seizure Discharge Disposition: Discharged to Home Patient Instructions Given at Discharge: Epilepsy (ED)
[2017-04-04 19:49] LABS: BASOPHILS # (AUTO) 0.04 10*3/UL; BASOPHILS % (AUTO) 0.6 % (0-1); HEMATOCRIT 43.6 % (37.0-47.0); LYMPHOCYTES # (AUTO) 3.82 10*3/uL; MEAN CORPUSCULAR HGB CONC 32.1 g/dL (33-37); MEAN CORPUSCULAR VOLUME 93.4 FL (81-99); MEAN PLATELET VOLUME 10.9 FL (7.4-12.2); MONOCYTES # (AUTO) 0.69 10*3/UL (0.3-0.8); MONOCYTES % (AUTO) 10.4 % (5-15); NEUTROPHILS # (AUTO) 1.88 10*3/UL; NEUTROPHILS % (AUTO) 28.3 % (50-80); RED BLOOD COUNT 4.67 10^6/uL (4.20-5.40)
[2017-04-04 19:56] LABS: PLATELET MORPHOLOGY COMMENT NORMAL MORPHOLOGY (NORM); RBC MORPHOLOGY COMMENT NORMAL MORPHOLOGY (NORM); WBC MORPHOLOGY COMMENT NORMAL MORPHOLOGY (NORM)
[2017-04-04 20:01] LABS: BLOOD UREA NITROGEN 13 mg/dL (7-22); BUN/CREATININE RATIO 18.57 (6-20); CALCIUM 9.1 mg/dL (8.7-10.7); EST GLOMERULAR FILTRATION > 60 (>60 ml/min/1.73m(2)); MAGNESIUM 2.1 mg/dL (1.6-2.4); SERUM ALBUMIN 4.4 g/dL (3.5-4.8)
[2017-04-04 20:05] LABS: C-REACTIVE PROTEIN < 0.5 mg/dL (0.0-0.9)
[2017-04-04 20:15] LABS: FREE T4 (FREE THYROXINE) 0.66 ng/dL (0.93-1.71)
[2017-04-04] MEDS ORDERED: ACETAMINOPHEN 325 MG TABLET PO ONE (20:52)
[2017-04-04 21:33] VITALS: RESP 18; TEMP 98.2
[2017-04-04 21:35] LABS: VENOUS PH 7.28 (7.32-7.42)
[2017-04-04] MEDS ORDERED: diphenhydrAMINE 50 MG/1 ML VIAL IVP ONE (21:51)
[2017-04-04 21:53] LABS: URINE SAMPLE TYPE VOIDED SPECIMEN; URINE SPECIFIC GRAVITY - MAN 1.013
[2017-04-04] MEDS ORDERED: diphenhydrAMINE 50 MG/1 ML VIAL ONE (21:53)
[2017-04-04 21:54] LABS: AMPHETAMINE SCREEN NEGATIVE (NEG); CANNABINOID SCREEN,URINE NEGATIVE (NEG); COCAINE SCREEN NEGATIVE (NEG); METHADONE URINE SCREEN NEGATIVE (NEG); METHAMPHETAMINES SCREEN,URINE NEGATIVE (NEG); OPIATE SCREEN,URINE NEGATIVE (NEG)
== END 2017-04-04 22:15 | disposition home or self-care (01) ==
LOC: ER 19:30
DX: G40.409 Other generalized epilepsy and epileptic syndromes, not intractable, without status epilepticus (principal); R41.82 Altered mental status, unspecified
CPT/HCPCS: 36415; 80053; 80164; 80305; 80320; 82803; 83605; 83735; 84439; 84443; 84703; 85025; 86140; 96361; 96374; 96375; 99282; 99283; J1200; J2060; J2405; J7030

== ENCOUNTER → 2017-04-21 | Outpatient (CLI) | payer OTHER ==
[2017-04-21 15:15] LABS: BASOPHILS # (AUTO) 0.01 10*3/UL; BASOPHILS % (AUTO) 0.2 % (0-1); EOSINOPHILS # (AUTO) 0.02 10*3/UL; EOSINOPHILS % (AUTO) 0.4 % (0-8); HEMATOCRIT 35.9 % (37.0-47.0); LYMPHOCYTES # (AUTO) 1.39 10*3/uL; MEAN CORPUSCULAR HEMOGLOBIN 30.8 PG (27-31); MEAN CORPUSCULAR HGB CONC 33.4 g/dL (33-37); MEAN CORPUSCULAR VOLUME 92.1 FL (81-99); MEAN PLATELET VOLUME 9.2 FL (7.4-12.2); MONOCYTES # (AUTO) 0.64 10*3/UL (0.3-0.8); MONOCYTES % (AUTO) 14.2 % (5-15); NEUTROPHILS # (AUTO) 2.43 10*3/UL; NEUTROPHILS % (AUTO) 54.1 % (50-80)
[2017-04-21 16:11] LABS: PLATELET MORPHOLOGY COMMENT NORMAL MORPHOLOGY (NORM); RBC MORPHOLOGY COMMENT NORMAL MORPHOLOGY (NORM); WBC MORPHOLOGY COMMENT NORMAL MORPHOLOGY (NORM)
[2017-04-21 17:22] LABS: ERYTHROCYTE SEDIMENTATION RATE 36 MM/HR (0-20)
== END ==
LOC: LAB 14:58
PROVIDERS: ATTEND Orthopaedic Surgery
DX: M25.561 Pain in right knee (principal); D50.9 Iron deficiency anemia, unspecified; Z96.651 Presence of right artificial knee joint; Z98.890 Other specified postprocedural states
CPT/HCPCS: 36415; 73502; 73562; 82728; 83540; 83550; 85025; 85652

== ENCOUNTER → 2017-04-21 | Outpatient (CLI) | payer OTHER ==
--- NOTE | 2017-04-21 22:03 | DI ---
RIGHT KNEE, 04/21/2017 10:33 AM: Clinical History: Right knee pain. Previous Exam: 10/18/2014 and 11/01/2016. 3 views are submitted. The AP view is a weightbearing view. The patient is status post revision of a previous total knee replacement. The tibial prosthetic component shows no loosening of the prosthesis . The femoral side of the prosthesis shows a lucency around the metallic shank similar to the last ex am and suggestive of loosening of that component of the prosthesis. The standing view includes the le ft knee joint. On the presumption that the patient was standing with both knees and extension and wit hout tilting of the pelvis, then the level of the articulations on the left side are higher than the articulations of the prosthetic components. Readin. Status post total right knee replacement. These components represent a revision of a previous tot al knee replacement procedure. The femoral component has a lucency around the shaft and this is suspi cious for loosening of the prosthesis. If further evaluation of this prosthetic joint is required, th en a CT SPECT scan of the knees with 3 phase imaging would be recommended. 2. The tibial component does not appear to demonstrate loosening of the prosthesis. 3. If the patient is truly standing correctly in an upright position, then the level of the articula tion of the prosthetic joint is positioned lower than the articulation and articular surfaces of the left knee.
--- NOTE | 2017-04-21 22:06 | DI ---
AP PELVIS and RIGHT HIP, 04/21/2017 10:33 AM: Clinical History: Right hip pain. Previous Exam: 11/01/2016. There is no soft tissue abnormality. The bony structures of the pelvis are normal. 2 views of the rig ht hip are normal. Readin. Normal right hip exam. 2. The AP pelvis view is unremarkable.
== END ==
LOC: ORTHO 11:41
PROVIDERS: ATTEND Orthopaedic Surgery
DX: M25.551 Pain in right hip (principal); M25.561 Pain in right knee; Z96.651 Presence of right artificial knee joint
CPT/HCPCS: 73502; 73562

== ENCOUNTER 2017-04-30 14:59 | Emergency (ER) | payer OTHER ==
[2017-04-30] MEDS ORDERED: ONDANSETRON 4 MG/2 ML VIAL IVP ONE (15:16)
[2017-04-30] MEDS: LORazepam 2 MG/1 ML VIAL IVP ONE (15:22)
--- NOTE | 2017-04-30 15:22 | PDOC ---
Seizure HPI - General Chief Complaint: Neurological Complaints Stated Complaint: seizure Date Seen by Provider: 04/30/17 Time Seen by Provider: 15:17 Source: POSITIVE: Patient, EMS Exam Limitations: POSITIVE: No limitations Nurse's Notes Reviewed & Considered: Yes EMS Report Reviewed & Considered: Verbal - History of Present Illness Initial Comments: This is a 51-year-old tearful female comes in complaining of seizure. Patient with history of seizure and pseudoseizure comes in today stating she is out of her valproic acid and had a seizure. She is under increased stress presently undergoing a divorce that she just learned about 2 weeks ago. She states she feels worthless, like a insole tacker waiting to be yelled at. She is depressed , complains of sleeplessness, and no enjoyment. She denies any headache, she states 2 days ago she had a fever to 101 and an episode of diarrhea. Timing: REPORTS: Unknown Duration: Unknown Preceding Symptoms/Context (specify in comments): REPORTS: Fever/Chills Character of Seizure(s): REPORTS: Gen. "Shaking all Over" Post-ictal Symptoms: REPORTS: None (When EMS arrived they were able to have a discussion with the patient even though she was having a "seizure", and they were able to talk her out of her seizures.) Recently seen/treated/hospitalized: No Any Prior Injuries Related to Current Complaint?: No - Patient Home Medications Home Medications: Home Medications Divalproex Sodium [Depakote] 500 mg PO BID tab 10/06/15 Estradiol 1 tab PO DAILY #30 tab 08/11/16 Citalopram Hydrobromide [Celexa] 1 tab PO DAILY tab 04/21/17 - Patient Allergies Allergies/Adverse Reactions: Allergies Allergy/AdvReac Type Severity Reaction Status Date / Time nickel Allergy Severe DELAYED Verified 04/30/17 15:15 HEALING TKA codeine [Codeine] Allergy Intermediate ITCHING Verified 04/30/17 15:15 Penicillins Allergy Intermediate ANAPHLAXIS Verified 04/30/17 15:15 Sulfa (Sulfonamide Allergy Intermediate RASH Verified 04/30/17 15:15 Antibiotics) tramadol AdvReac Intermediate NAUSEA Verified 04/30/17 15:15 hydrocodone AdvReac VOMITING Verified 04/30/17 15:15 SEAFOOD Allergy Anaphylaxis Uncoded 04/30/17 15:15 Past Medical History - heen HEENT History: Dentures/Partials, Other (please comment) Additional HEENT History: HAS TONGUE piercing. DENTURES UPPER AND LOWER Cardiovascular History: Denies History Respiratory History: Denies History Additional Respiratory History: BRUISED RIBS FROM RECENT ER VISIT APPROX 2-3 WEEKS AGO Gastrointestinal History: GERD, Irritable Bowel Syndrome, Peptic Ulcer Disease, Gallbladder Disease Additional Gastrointestinal History: HX OF GASTRIC BYPASS Genitourinary History: Denies History Additional Genitourinary History: HAS NOT HAD UTI IN A LONG TIME Endocrine History: Other (please comment) Additional Endocrine History: STATES SHE WAS DIABETIC PRIOR TO GASTRIC BYPASS Musculoskeletal History: Arthritis, Back Pain, Joint Pain, Other (please comment ) Prosthesis or Implant: Yes (RIGHT KNEE/LEFT 3RD FINGER) Additional Musculoskeletal History: R TKA SEP 2013 (3 surgeries total), and has had manipulation of right knee under anesthesia since. CHRONIC BACK PAIN Neurological History: Seizures, Migraines, Motion Sickness Additional Neurological History: INSOMNIA Blood Disorders: Anemia Additional Blood Disorders History: LABS ABNORMAL. SEE NOTE IN ANESTHESIA CHART REVIEW FOR FURTHER NOTE. ANEMIA Psychiatric History: Depression, Anxiety Disorders, Substance Abuse Additional Psychiatric History: past history of substance abuse History of Sexually Transmitted Diseases: No Cancer History: Denies History History of MDRO: No History of Other Communicable Diseases: No Alcohol Use: None Substance Use Type: None, Other (please comment) Previous Surgical History: Yes Type / Date of Surgery: RIGHT TKA X3 AND MANIPULATION/APPY/ DOMINGUEZ/ GASTRIC BYPASS 2007--weight dropped from 250 lbs to 125 after surgery/ HYST/ BLADDER REPAIR X3/ RIGHT INGUINAL HERNIORRHAPHY/ RIGHT FOOT BUNIONECTOMY/SALPINGO- OOPHERECTOMY/ RIGHT RCR/CTR Anesthesia Reactions: No Malignant Hyperthermia: No Significant Family History: Heart disease, Cancer, Diabetes, Hypertension Additional Family History: FATHER HAD PROSTATE CA/CVA ROS - Limitations ROS Limitations: No Limitations Constitution: REPORTS: Fever Cardiovascular: REPORTS: Denies Cardiac Symptoms Respiratory: REPORTS: Denies Resp Symptoms Neurological: REPORTS: Seizure Activity Gastrointestinal: REPORTS: Denies GI Symptoms Endocrine: REPORTS: Denies Symptoms Musculoskeletal: REPORTS: Denies MS Symptoms Genitourinary: REPORTS: Denies Symptoms Eyes: REPORTS: Denies Symptoms ENT: REPORTS: Denies Symptoms Skin: REPORTS: Denies Skin Symptoms Lympathic: REPORTS: Denies Lympathic Symptoms Immunologic: POSITIVE: Denies Symptoms Psychiatric: POSITIVE: Depression Seizure Exam - General Appearance General Appearance: POSITIVE: No Acute Distress, Alert - HEENT HEENT: POSITIVE: Head Inspection Nml, Eyes Inspection Nml, Ears Inspection Nml, Nose Inspection Nml, Oral/Dental Inspect. Nml, Pharynx Inspect. Nml, PERRL, EOMI - Pupil Size Pupil Size: 5 mm: Bilateral - Neck Neck: POSITIVE: Non Tender, Neck Supple, Trachea Midline, Nexus Criteria Negative - Respiratory Respiratory: POSITIVE: Chest Non Tender, No Ecchymosis, Breath Sounds Normal, No Respiratory Distress - Cardiovascular Cardiovascular: POSITIVE: Regular Rate and Rhythm, Heart Sounds Normal, No Murmur, No Gallop, No JVD, No Pulse Deficit - Abdomen Abdomen: Soft: (All Quadrants), Normal Bowel Sounds: (All Quadrants), Denies Tenderness: (All Quadrants), No Splenomegaly: (All Quadrants), No Hepatomegaly: (All Quadrants), No Guarding: (All Quadrants), No Rebound: (All Quadrants), No Palpable Pulse: (All Quadrants), No Palpabale Mass: (All Quadrants), No Distention: (All Quadrants), No Rigidity: (All Quadrants) - Skin Skin: POSITIVE: Intact, Normal For Race, Warm, Dry, No Rash - Extremities Extremity: Non-Tender: (All Extremities), Normal ROM: (All Extremities), Normal Inspection: (All Extremities), Pelvis Stable: (All Extremities) - Neuro / Psych Higher Functions: POSITIVE: Oriented x3, Speech Normal, Mood Appropriate, Affect Appropriate Cranial Nerves: POSITIVE: Normal As Tested, No Evidence of Acute CVA Cerebellar: POSITIVE: Normal As Tested Sensorimotor: POSITIVE: No Motor Deficits, No Sensory Deficits Seizure Progress - Results Reviewed by me Lab Results Reviewed: Yes Lab Results:: Laboratory Results 04/30/17 Range/Units 15:16 WBC 6.75 (4.8-10.8) 10^3/uL RBC 4.40 (4.20-5.40) 10^6/uL Hgb 13.9 (12.0-16.0) g/dL Hct 42.1 (37.0-47.0) % MCV 95.7 (81-99) FL MCH 31.6 H (27-31) PG MCHC 33.0 (33-37) g/dL RDW Std Deviation 50.5 H (39-50) fL RDW Coeff of Sam 14.9 H (11.5-14.5) % Plt Count 315 (140-350) 10*3/uL MPV 10.9 (7.4-12.2) FL Immature Gran % (Auto) 0.3 (0-5) % Neut % (Auto) 47.6 L (50-80) % Lymph % (Auto) 39.0 (10-50) % [place] % (Auto) 9.8 (5-15) % Eos % (Auto) 2.7 (0-8) % Baso % (Auto) 0.6 (0-1) % Immature Gran # (Auto) 0.02 10*3/UL Neut # (Auto) 3.22 10*3/UL Lymph # (Auto) 2.63 10*3/uL [place] # (Auto) 0.66 (0.3-0.8) 10*3/UL Eos # (Auto) 0.18 10*3/UL Baso # (Auto) 0.04 10*3/UL WBC Morphology Comment Normal morphology (NORM) Plt Morphology Comment Normal morphology (NORM) RBC Morph Comment Normal morphology (NORM) Sodium 143 (135-145) meq/L Potassium 4.2 (3.8-5.2) meq/L Chloride 108 (98-112) meq/L Carbon Dioxide 28 (23-33) meq/L Anion Gap 7 (5-20) BUN 12 (7-22) mg/dL Creatinine 0.7 (0.50-1.20) mg/dL Estimated GFR > 60 (>60 ml/min/1.73m(2)) BUN/Creatinine Ratio 17.14 (6-20) Glucose 81 (78-110) mg/dL Calculated Osmolality 294.0 H (267-292) mOsm/kg Lactic Acid 0.7 (0.70-2.10) MMOL/L Calcium 9.1 (8.7-10.7) mg/dL Magnesium 2.2 (1.6-2.4) mg/dL Total Bilirubin 0.4 (0.3-1.2) mg/dL AST 64 H (8-39) IU/L ALT 33 (9-52) IU/L Alkaline Phosphatase 95 (38-126) IU/L Total Protein 7.1 (6.1-8.0) g/dL Albumin 3.9 (3.5-4.8) g/dL Globulin 3.2 (2.50-4.10) g/dL Albumin/Globulin Ratio 1.20 L (1.3-2.0) mg/g TSH 0.664 (0.2700-4.2000) uIU/mL - Patient's Progress Pain Medication Addressed: POSITIVE: Not Applicable Re-Examine Time:: 16:19 Status: POSITIVE: Improved MDM / ED Course: Patient was examined, an IV started, blood drawn and sent to the lab for studies. A counselor with [facility] was contacted. The counselor arrived and is interviewed this patient and feel that she is not a risk to self or others. She has established follow-up for Tuesday. Findings: Valproic acid is pending. CBC is normal. Comprehensive metabolic panel is normal. TSH is normal. Assessment: #1 pseudoseizure with no further episodes here in the emergency department. #2 depression with increased family stress. #3 insomnia. 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 She is to call [facility] Tuesday. She is being given a prescription for valproic acid. She is to follow-up with her primary care physician. Patient Care Time - Estimated PCT Patient Care Time (In Minutes): 45 Vital Signs - Recent Vital Signs Vital Signs: Vital Signs (Last 8 hours) Temp Pulse Resp BP Pulse Ox 04/30/17 15:27 97.9 F 80 16 120/81 97 - VS Reviewed Vital Signs Reviewed: Yes Discharge Clinical Impression: Dissociative convulsions, Insomnia, Depression Discharge Disposition: Discharged to Home Condition: Stable Patient Instructions Given at Discharge: Epilepsy (ED), Depression (ED), Insomnia (ED)
[2017-04-30] MEDS: Sodium Chloride 0.9% 1,000 ML PRIMARY IV ONE (15:23)
[2017-04-30 15:28] LABS: HEMATOCRIT 42.1 % (37.0-47.0); HEMOGLOBIN 13.9 g/dL (12.0-16.0); MEAN CORPUSCULAR HEMOGLOBIN 31.6 PG (27-31); MEAN CORPUSCULAR VOLUME 95.7 FL (81-99)
[2017-04-30 15:29] LABS: BASOPHILS # (AUTO) 0.04 10*3/UL; BASOPHILS % (AUTO) 0.6 % (0-1); EOSINOPHILS # (AUTO) 0.18 10*3/UL; EOSINOPHILS % (AUTO) 2.7 % (0-8); LYMPHOCYTES # (AUTO) 2.63 10*3/uL; MEAN PLATELET VOLUME 10.9 FL (7.4-12.2); MONOCYTES # (AUTO) 0.66 10*3/UL (0.3-0.8); MONOCYTES % (AUTO) 9.8 % (5-15); NEUTROPHILS # (AUTO) 3.22 10*3/UL; NEUTROPHILS % (AUTO) 47.6 % (50-80); PLATELET MORPHOLOGY COMMENT NORMAL MORPHOLOGY (NORM); RBC MORPHOLOGY COMMENT NORMAL MORPHOLOGY (NORM); WBC MORPHOLOGY COMMENT NORMAL MORPHOLOGY (NORM)
[2017-04-30 15:31] LABS: BLOOD UREA NITROGEN 12 mg/dL (7-22); BUN/CREATININE RATIO 17.14 (6-20); CALCIUM 9.1 mg/dL (8.7-10.7); EST GLOMERULAR FILTRATION > 60 (>60 ml/min/1.73m(2)); MAGNESIUM 2.2 mg/dL (1.6-2.4); SERUM ALBUMIN 3.9 g/dL (3.5-4.8)
[2017-04-30 15:43] VITALS: RESP 16; TEMP 97.9
== END 2017-04-30 16:32 | disposition home or self-care (01) ==
LOC: ER 14:59
DX: F44.5 Conversion disorder with seizures or convulsions (principal); F32.89 Other specified depressive episodes; G47.00 Insomnia, unspecified
CPT/HCPCS: 80053; 80164; 83605; 83735; 84443; 85025; 90791; 96374; 99283 ×2; J2060